=== PATIENT | female | born 1935 | race Caucasian/White ===

== ENCOUNTER 2017-10-16 09:12 | Day surgery (SDC) | payer OTHER ==
[~2017-10-16] VITALS: Ht 160 cm; Wt 76.0 kg
[~2017-10-16 09:12] MED LIST: ACIDOPHILUS1 EAC2 PO; ALBU90OI INH; AMOCLA875 PO; ASPI81CH PO; AZIT250 PO; Atenolol25 MG PO; BENZ100A PO; Benadryl 50 mg50 MG PO; CARV6.25 PO; FURO40 PO; HYDCHL25 PO; HYDHOMSY PO; K-Dur10 MEQ PO; Keflex500 MG PO; LEVFLO500 PO; LEVSOD125 PO; LOSA50 PO; Levothyroxine137 MCG PO; MAGOXI400 PO; MELA3 PO; Monodox100 MG PO; Norco 5-325 Ta1 EACH PO; POTCHL20ER PO; Simvastatin40 MG PO; VITAMIN D3 1,01 EACH PO; Vitamin D3 PO; Zithromax250 MG PO; Zithromax500 MG PO; Zofran Odt8 MG SL
== END 2017-10-16 12:52 | disposition home or self-care (01) ==
LOC: ORSCSDS 09:12
PROVIDERS: Podiatrist Foot & Ankle Surgery
PROC: 0QSN04Z Reposition Right Metatarsal with Internal Fixation Device, Open Approach (ICD-10-PCS; principal; 2017-10-16 10:30)
PROC: 0SNP0ZZ Release Right Toe Phalangeal Joint, Open Approach (ICD-10-PCS; principal; 2017-10-16 10:30)
DX: M20.11 Hallux valgus (acquired), right foot (principal); M77.9 Enthesopathy, unspecified; I10 Essential (primary) hypertension; E03.9 Hypothyroidism, unspecified; J44.9 Chronic obstructive pulmonary disease, unspecified; E78.5 Hyperlipidemia, unspecified; Z79.82 Long term (current) use of aspirin; Z79.899 Other long term (current) drug therapy; Z87.891 Personal history of nicotine dependence
CPT/HCPCS: C1713; J0690; J2250; J3010

== ENCOUNTER 2018-11-05 12:45 | Emergency (ER) | payer OTHER ==
[~2018-11-05] VITALS: Ht 160 cm; Wt 76.7 kg
[2018-11-05 13:35] LABS: BASOPHILS ABSOLUTE AUTO 0.03 K/mm3 (0.00-0.23); BASOPHILS PERCENT AUTO 0 % (0-2); EOSINOPHILS ABSOLUTE AUTO 0.25 K/mm3 (0.00-0.68); EOSINOPHILS PERCENT AUTO 3 % (0-6); Hemoglobin 11.9 g/dL (11.5-16.0); IMMATURE GRAN ABSOLUTE AUTO 0.02 K/mm3 (0.00-0.10); IMMATURE GRAN PERCENT AUTO 0 % (0-1); LYMPHOCYTES ABSOLUTE AUTO 1.29 K/mm3 (0.84-5.20); LYMPHOCYTES PERCENT AUTO 16 % (21-46); MONOCYTES ABSOLUTE AUTO 0.76 K/mm3 (0.16-1.47); MONOCYTES PERCENT AUTO 9 % (4-13); Mean Corpuscular HGB 31.7 pg (26.0-34.0); Mean Corpuscular HGB Conc 31.3 g/dL (31.5-36.5); Mean Corpuscular Volume 101 fL (80-100); Mean Platelet Volume 10.7 fL (9.1-12.4); NEUTROPHILS ABSOLUTE AUTO 5.71 K/mm3 (1.96-9.15); NEUTROPHILS PERCENT AUTO 71 % (41-73); Platelet Count 217 K/mm3 (150-400); RDW Coefficient Variation 13.7 % (11.7-14.2); RDW Standard Deviation 51.5 fL (35.1-46.3); Red Blood Cell Count 3.75 M/mm3 (3.80-5.20); White Blood Cell Count 8.06 K/mm3 (4.00-11.30)
[2018-11-05] MEDS ORDERED: CARV3.125 PO (13:36)
[2018-11-05] MEDS ORDERED: AMLO5 PO (13:36)
[2018-11-05] MEDS ORDERED: EUTHYROX112 MCG PO (13:40)
[2018-11-05] MEDS ORDERED: TRAM50 PO (13:40)
[2018-11-05 13:58] LABS: Alanine Aminotransfer (ALT/SGP 17 U/L (12-78); Albumin, Blood 4.5 g/dL (3.4-5.0); Albumin/Globulin Ratio 1.3 (0.8-1.8); Alk Phos 88 U/L (50-136); Anion Gap 6 mmol/L (6-16); Aspartate Aminotrans (AST/SGOT 27 U/L (12-37); Bilirubin, Total 1.3 mg/dL (0.1-1.0); Blood Urea Nitrogen 15 mg/dL (8-24); Bun/Creatinine Ratio 20.6 (12.0-20.0); CO2, Blood 25 mmol/L (21-32); Calcium, Blood 9.2 mg/dL (8.5-10.1); Chloride, Blood 105 mmol/L (98-108); Creatinine, Blood 0.73 mg/dL (0.40-1.00); Globulin, Blood 3.5 g/dL (2.2-4.0); Glomerular Filtration Rate >60 (60-); Glucose, Blood 97 mg/dL (70-99); Potassium, Blood 4.5 mmol/L (3.5-5.5); Sodium, Blood 136 mmol/L (136-145)
== END 2018-11-05 14:49 | disposition home or self-care (01) ==
LOC: ER 12:45
PROVIDERS: Physician Assistant
DX: R19.7 Diarrhea, unspecified (principal); I11.0 Hypertensive heart disease with heart failure; I50.9 Heart failure, unspecified; E03.9 Hypothyroidism, unspecified; Z88.2 Allergy status to sulfonamides; Z88.5 Allergy status to narcotic agent; Z79.899 Other long term (current) drug therapy
CPT/HCPCS: 36415; 80053; 85025; 99284

== ENCOUNTER 2019-03-05 15:23 | Emergency (ER) | payer OTHER ==
[~2019-03-05] VITALS: Ht 160 cm; Wt 77.1 kg
[~2019-03-05 15:23] MED LIST changes: +AMLO5 PO; +CARV3.125 PO; +EUTHYROX112 MCG PO; +TRAM50 PO
[2019-03-05 16:13] LABS: BASOPHILS ABSOLUTE AUTO 0.02 K/mm3 (0.00-0.23); BASOPHILS PERCENT AUTO 0 % (0-2); EOSINOPHILS ABSOLUTE AUTO 0.17 K/mm3 (0.00-0.68); EOSINOPHILS PERCENT AUTO 2 % (0-6); Hematocrit 38.8 % (33.0-51.0); Hemoglobin 12.5 g/dL (11.5-16.0); IMMATURE GRAN ABSOLUTE AUTO 0.03 K/mm3 (0.00-0.10); IMMATURE GRAN PERCENT AUTO 0 % (0-1); LYMPHOCYTES ABSOLUTE AUTO 1.38 K/mm3 (0.84-5.20); LYMPHOCYTES PERCENT AUTO 19 % (21-46); MONOCYTES ABSOLUTE AUTO 0.57 K/mm3 (0.16-1.47); MONOCYTES PERCENT AUTO 8 % (4-13); Mean Corpuscular HGB Conc 32.2 g/dL (31.5-36.5); Mean Corpuscular Volume 99 fL (80-100); Mean Platelet Volume 11.2 fL (9.1-12.4); NEUTROPHILS ABSOLUTE AUTO 5.15 K/mm3 (1.96-9.15); NEUTROPHILS PERCENT AUTO 70 % (41-73); Platelet Count 200 K/mm3 (150-400); RDW Coefficient Variation 13.2 % (11.7-14.2); RDW Standard Deviation 48.8 fL (35.1-46.3); Red Blood Cell Count 3.91 M/mm3 (3.80-5.20); White Blood Cell Count 7.32 K/mm3 (4.00-11.30)
[2019-03-05 16:25] LABS: Alanine Aminotransfer (ALT/SGP 23 U/L (12-78); Albumin, Blood 4.3 g/dL (3.4-5.0); Albumin/Globulin Ratio 1.2 (0.8-1.8); Alk Phos 101 U/L (50-136); Anion Gap 4 mmol/L (6-16); Aspartate Aminotrans (AST/SGOT 42 U/L (12-37); Bilirubin, Total 1.4 mg/dL (0.1-1.0); Blood Urea Nitrogen 21 mg/dL (8-24); Bun/Creatinine Ratio 21.7 (12.0-20.0); CO2, Blood 28 mmol/L (21-32); Chloride, Blood 103 mmol/L (98-108); Creatinine, Blood 0.97 mg/dL (0.40-1.00); Globulin, Blood 3.5 g/dL (2.2-4.0); Glomerular Filtration Rate 59 (60-); Glucose, Blood 100 mg/dL (70-99); Potassium, Blood 4.8 mmol/L (3.5-5.5); Sodium, Blood 135 mmol/L (136-145); Total Protein, Blood 7.8 g/dL (6.4-8.2); Troponin I <0.015 ng/mL (0.000-0.040)
[2019-03-05] MEDS ORDERED: LOPE2C PO (18:27)
== END 2019-03-05 18:38 | disposition home or self-care (01) ==
LOC: ER 15:23
PROVIDERS: Physician Assistant
DX: J20.8 Acute bronchitis due to other specified organisms (principal); I11.0 Hypertensive heart disease with heart failure; I50.9 Heart failure, unspecified; E78.00 Pure hypercholesterolemia, unspecified
CPT/HCPCS: 36415; 71046; 80053; 83880; 84484; 85025; 93005; 93010; 99285-25

== ENCOUNTER 2019-07-29 12:20 | Inpatient (IN) | payer OTHER, MEDICARE ==
[~2019-07-29] VITALS: Ht 160 cm; Wt 79.0 kg
[~2019-07-29 12:20] MED LIST changes: +LOPE2C PO; -MELA3 PO
[2019-07-29 12:55] LABS: BASOPHILS ABSOLUTE AUTO 0.02 K/mm3 (0.00-0.23); BASOPHILS PERCENT AUTO 0 % (0-2); EOSINOPHILS ABSOLUTE AUTO 0.03 K/mm3 (0.00-0.68); EOSINOPHILS PERCENT AUTO 0 % (0-6); Hematocrit 42.1 % (33.0-51.0); Hemoglobin 13.2 g/dL (11.5-16.0); IMMATURE GRAN ABSOLUTE AUTO 0.06 K/mm3 (0.00-0.10); IMMATURE GRAN PERCENT AUTO 1 % (0-1); LYMPHOCYTES ABSOLUTE AUTO 0.98 K/mm3 (0.84-5.20); LYMPHOCYTES PERCENT AUTO 8 % (21-46); MONOCYTES ABSOLUTE AUTO 1.01 K/mm3 (0.16-1.47); MONOCYTES PERCENT AUTO 8 % (4-13); Mean Corpuscular HGB Conc 31.4 g/dL (31.5-36.5); Mean Corpuscular Volume 99 fL (80-100); Mean Platelet Volume 11.8 fL (9.1-12.4); NEUTROPHILS ABSOLUTE AUTO 10.43 K/mm3 (1.96-9.15); NEUTROPHILS PERCENT AUTO 83 % (41-73); Platelet Count 192 K/mm3 (150-400); RDW Coefficient Variation 13.6 % (11.7-14.2); RDW Standard Deviation 49.6 fL (35.1-46.3); Red Blood Cell Count 4.26 M/mm3 (3.80-5.20); White Blood Cell Count 12.53 K/mm3 (4.00-11.30)
[2019-07-29 13:03] LABS: Albumin, Blood 4.3 g/dL (3.4-5.0); Albumin/Globulin Ratio 1.3 (0.8-1.8); Bilirubin, Total 1.8 mg/dL (0.1-1.0); Calcium, Blood 9.1 mg/dL (8.5-10.1); Creatinine, Blood 1.24 mg/dL (0.40-1.00); Globulin, Blood 3.2 g/dL (2.2-4.0); Potassium, Blood 4.4 mmol/L (3.5-5.5); Total Protein, Blood 7.5 g/dL (6.4-8.2)
[2019-07-29 13:14] LABS: Source, Urine Clean Catch
[2019-07-29 13:18] LABS: Bilirubin, Urine Neg (Neg); Blood, Urine 1+ (Neg); Glucose Qualitative, Urine Neg (Neg); Ketones, Urine 1+ (Neg); Leukocyte Esterase, Urine 3+ (Neg); Nitrite, Urine Neg (Neg); Protein, Urine 3+ (Neg); Urobilinogen, Urine NORM (Normal)
[2019-07-29 13:45] LABS: Appearance, Urine Clear (Clear); Color, Urine Yellow (P-Yellow)
[2019-07-29 13:46] LABS: Bacteria Mod /hpf; Squamous Epithelial Cells Few /hpf (Few)
[2019-07-29] MEDS ORDERED: TORSE20 PO (14:22)
[2019-07-29] MEDS ORDERED: METO25ER PO (14:22)
[2019-07-29] MEDS ORDERED: SIMV10 PO (14:23)
[2019-07-29] MEDS ORDERED: VASCEPA1 GM PO (14:53)
[2019-07-29] MEDS ORDERED: MELATONIN5 M1 PO (15:51)
--- NOTE | 2019-07-29 18:26 | NUR ---
PATIENT HAS DENIED NAUSEA SINCE ARRIVAL TO FLOOR. IV PAIN MATTE CUTTER, PATIENT DOZING, AWAKENS WITH CARE. IVF INFUSING PER ORDER, SITE CLEAR. CONSULT FOR DR JIMÉNEZ CALLED BY CN. NG TO LIS, SMALL AMOUNT ZAVALA FLUID IN CANISTER. CONT TO MONITOR.
[2019-07-29] MEDS ORDERED: ASPI81CH PO (18:31)
--- NOTE | 2019-07-29 18:31 | NUR ---
HOME MED LIST UPDATED
[2019-07-30 05:02] LABS: BASOPHILS ABSOLUTE AUTO 0.01 K/mm3 (0.00-0.23); BASOPHILS PERCENT AUTO 0 % (0-2); EOSINOPHILS ABSOLUTE AUTO 0.01 K/mm3 (0.00-0.68); EOSINOPHILS PERCENT AUTO 0 % (0-6); Hematocrit 39.1 % (33.0-51.0); Hemoglobin 12.2 g/dL (11.5-16.0); IMMATURE GRAN ABSOLUTE AUTO 0.02 K/mm3 (0.00-0.10); IMMATURE GRAN PERCENT AUTO 0 % (0-1); LYMPHOCYTES ABSOLUTE AUTO 0.45 K/mm3 (0.84-5.20); LYMPHOCYTES PERCENT AUTO 6 % (21-46); MONOCYTES ABSOLUTE AUTO 0.69 K/mm3 (0.16-1.47); MONOCYTES PERCENT AUTO 9 % (4-13); Mean Corpuscular HGB Conc 31.2 g/dL (31.5-36.5); Mean Corpuscular Volume 100 fL (80-100); Mean Platelet Volume 11.7 fL (9.1-12.4); NEUTROPHILS ABSOLUTE AUTO 6.34 K/mm3 (1.96-9.15); NEUTROPHILS PERCENT AUTO 84 % (41-73); Platelet Count 165 K/mm3 (150-400); RDW Coefficient Variation 13.7 % (11.7-14.2); RDW Standard Deviation 50.3 fL (35.1-46.3); Red Blood Cell Count 3.93 M/mm3 (3.80-5.20); White Blood Cell Count 7.52 K/mm3 (4.00-11.30)
[2019-07-30 05:37] LABS: Alanine Aminotransfer (ALT/SGP 10 U/L (12-78); Albumin, Blood 3.5 g/dL (3.4-5.0); Albumin/Globulin Ratio 1.2 (0.8-1.8); Alk Phos 84 U/L (50-136); Anion Gap 9 mmol/L (6-16); Aspartate Aminotrans (AST/SGOT 15 U/L (12-37); Bilirubin, Total 1.7 mg/dL (0.1-1.0); Blood Urea Nitrogen 21 mg/dL (8-24); Bun/Creatinine Ratio 23.1 (12.0-20.0); CO2, Blood 24 mmol/L (21-32); Calcium, Blood 8.3 mg/dL (8.5-10.1); Chloride, Blood 110 mmol/L (98-108); Creatinine, Blood 0.91 mg/dL (0.40-1.00); Glomerular Filtration Rate >60 (60-); Glucose, Blood 125 mg/dL (70-99); Sodium, Blood 143 mmol/L (136-145); Total Protein, Blood 6.5 g/dL (6.4-8.2)
--- NOTE | 2019-07-30 06:33 | NUR ---
SHIFT SUMMARY: PT C/O UPPER ABD PAIN. PT MEDICATED WITH 50MCG OF FENTANYL PER EMAR WHICH SEEMED TO BE EFFECTIVE. NG TUBE DRAINING DARK BROWN LIQ. FLUIDS INFUSING. PT VOIDING IN BEDSIDE COMMODE. MINIMAL 1 ASSIST FOR ALL TRANSFERS. TELE SHOWS MULTIPLE PVC'S Q3-4 BEAT. PT ASYMPTOMATIC.
--- NOTE | 2019-07-30 14:53 | NUR ---
PATIENT REPORTS PASSING FLATUS. "IT WAS A GOOD ONE TOO." UP TO SIDE OF BED; DOING ADL'S. STATES 'I STILL HAVE STOMACH PAIN.' DECLINES OFFER OF PAIN MED. VOIDING WELL. DENIES NAUSEA. NG RESECURED; DRAINING LIGHT BROWN LIQUID. DR JIMÉNEZ IN TO SEE THIS AFTERNOON. SPOUSAE AT BEDSIDE AT THIS TIME.
--- NOTE | 2019-07-30 18:57 | NUR ---
PATIENT CONT DENY PAIN. TOLERATING SIPS OF WATER, THEN RETURNS TO SLEEP. VSS. BIOX 90-93& ON 4L O2 PER NC. FC PATENT AND DRAINING. L HIP DRESSINGS X2, D&I. NO ACUTE CHANGES SINCE ARRIVAL FROM PACU. CONT TO MONITOR AND REPORT TO ADRIANNE RN.
--- NOTE | 2019-07-31 04:30 | NUR ---
CALLED DR ORTIZ REGARDING UNBALANCED I/O AND EDEMA. PT VERB TAKES DIURETIC AT HOME.HAS DENIED SOB. LASIX GIVEN PER ORDERS RECEIVED.PT HAS HAD 800 ML OUT SO FAR SINCE LASIX.PT APPEARS TO BE SLEEPING INTERMITTENTLY, BUT STATES HAS NOT SLEPT. C/O BED BEING UNCOMFORTABLE FOR SLEEP.HAS REFUSED MULTIPLE OFFERS OF RECLINER CHAIRS.
[2019-07-31 05:22] LABS: Albumin, Blood 3.5 g/dL (3.4-5.0); Anion Gap 5 mmol/L (6-16); Blood Urea Nitrogen 13 mg/dL (8-24); Bun/Creatinine Ratio 15.5 (12.0-20.0); CO2, Blood 27 mmol/L (21-32); Calcium, Blood 8.8 mg/dL (8.5-10.1); Chloride, Blood 111 mmol/L (98-108); Creatinine, Blood 0.84 mg/dL (0.40-1.00); Glomerular Filtration Rate >60 (60-); Glucose, Blood 91 mg/dL (70-99); Phosphorus, Blood 2.1 mg/dL (2.5-4.9); Potassium, Blood 3.8 mmol/L (3.5-5.5); Sodium, Blood 143 mmol/L (136-145)
--- NOTE | 2019-07-31 06:55 | NUR ---
recvd report from previous shift SATISH Silverio. pt awake in bed, a/0 x 4, pleasant/cooperative. up to commode with standby assist. back to bed, bed in lowest position, bed rails up x 2, call light within reach
--- NOTE | 2019-07-31 11:22 | NUR ---
1100-dr calero rounded, orders to DC NG tube and resume clear liquids 1122-dr wise rounding on pt. NG tube removed WNL
--- NOTE | 2019-07-31 18:22 | NUR ---
shift summary: vss, no acute changes, pt tolerating clear liquid diet, BM x 3 this shift, no n/v following removal of NG tube. pt's visited today. pt voided >500 ml today.
[2019-08-01 05:58] LABS: Hematocrit 34.6 % (33.0-51.0); Hemoglobin 10.8 g/dL (11.5-16.0); Mean Corpuscular HGB 30.9 pg (26.0-34.0); Mean Corpuscular HGB Conc 31.2 g/dL (31.5-36.5); Mean Corpuscular Volume 99 fL (80-100); Mean Platelet Volume 11.4 fL (9.1-12.4); Platelet Count 126 K/mm3 (150-400); RDW Coefficient Variation 13.5 % (11.7-14.2); RDW Standard Deviation 49.1 fL (35.1-46.3); Red Blood Cell Count 3.49 M/mm3 (3.80-5.20); White Blood Cell Count 5.99 K/mm3 (4.00-11.30)
[2019-08-01 06:12] LABS: Albumin, Blood 3.6 g/dL (3.4-5.0); Anion Gap 7 mmol/L (6-16); Blood Urea Nitrogen 10 mg/dL (8-24); Bun/Creatinine Ratio 11.5 (12.0-20.0); CO2, Blood 29 mmol/L (21-32); Calcium, Blood 8.9 mg/dL (8.5-10.1); Chloride, Blood 105 mmol/L (98-108); Creatinine, Blood 0.87 mg/dL (0.40-1.00); Glomerular Filtration Rate >60 (60-); Glucose, Blood 88 mg/dL (70-99); Phosphorus, Blood 2.9 mg/dL (2.5-4.9); Potassium, Blood 3.3 mmol/L (3.5-5.5); Sodium, Blood 141 mmol/L (136-145)
--- NOTE | 2019-08-01 07:26 | NUR ---
SUMMARY PT HAVING LIQ BMS TONIGHT.VOIDING WITHOUT DIFF CLEAR YELLOW.GAETANO YOO RN REPORTED PTS TELE WAS ORDERED DCD AND WAS REMOVED.
--- NOTE | 2019-08-01 18:48 | NUR ---
SHIFT SUMMARY PT IS TOLERATING REGULAR DIET. SHE CONTINUES TO HAVE BOWEL MOVEMENTS. SHE HAS BEEN INDEPENDENT IN THE ROOM. VSS. WILL CONTINUE TO MONITOR UNTIL REPORT TO ONCOMING RN.
[2019-08-02 04:32] LABS: Albumin, Blood 3.3 g/dL (3.4-5.0); Anion Gap 8 mmol/L (6-16); Blood Urea Nitrogen 13 mg/dL (8-24); Bun/Creatinine Ratio 14.3 (12.0-20.0); CO2, Blood 28 mmol/L (21-32); Calcium, Blood 8.7 mg/dL (8.5-10.1); Chloride, Blood 103 mmol/L (98-108); Creatinine, Blood 0.91 mg/dL (0.40-1.00); Glomerular Filtration Rate >60 (60-); Glucose, Blood 90 mg/dL (70-99); Phosphorus, Blood 3.2 mg/dL (2.5-4.9); Potassium, Blood 3.7 mmol/L (3.5-5.5); Sodium, Blood 139 mmol/L (136-145)
--- NOTE | 2019-08-02 07:28 | NUR ---
SUMMARY PT HOPES TO GO HOME TODAY. INDEPENDANT TO BSC. TOLERATING PO.
--- NOTE | 2019-08-02 08:35 | NUR ---
DR JIMÉNEZ HERE TO SEE PT, REPORTS MAY GO HOME AFTER LUNCH IF HAVING NO NAUSEA.
--- NOTE | 2019-08-02 10:55 | NUR ---
DR JACOBS HERE RECENTLY TO SEE PT, DISCUSSED PT'S STATUS.
--- NOTE | 2019-08-02 12:54 | NUR ---
DISCHARGE: PT EATING AND DRINKING, VOIDING, HAVING BM'S. PT PAIN TOLERATED ON PO PAIN MEDICATION. PT REPORTING THAT SHE FEELS THAT SHE HAS A "YEAST INFECTION" IN HER DANA AREA. PT REPORTS THAT SHE CAN NOT SEE HER DANA AREA BUT REPORTS THAT NO ONE IS LOOKING. NOTIFIED. DR REPORTS ABLE TO COME TALK TO HER BUT THAT IT COULD BE UP TO AN HOUR BEFORE SHE (THE DR) IS ABLE TO COME TALK WITH PT. DR REPORTS THAT PT CAN WAIT FOR HER OR F/U WITH HER (PT'S) PCP. PT REPORTS WILL F/U WITH PCP. PT/FAMILY REPORTS UNDERSTADING OF DISCHARGE INSTRUCTIONS. PT REPORTS HAVING MEDICATIONS AT HOME INCLUDING PAIN MEDICATION.
== END 2019-08-02 12:57 | disposition home or self-care (01) | DRG 389 ==
LOC: ER 12:20 → SURS 15:49
PROVIDERS: Emergency Medicine; Nurse Practitioner Acute Care; ADMIT Internal Medicine
DX: K56.50 Intestinal adhesions [bands], unspecified as to partial versus complete obstruction (principal); N17.9 Acute kidney failure, unspecified; I42.8 Other cardiomyopathies; I50.22 Chronic systolic (congestive) heart failure; K52.1 Toxic gastroenteritis and colitis; R82.71 Bacteriuria; E86.0 Dehydration; I11.0 Hypertensive heart disease with heart failure; E03.9 Hypothyroidism, unspecified; E78.5 Hyperlipidemia, unspecified; T36.95XA Adverse effect of unspecified systemic antibiotic, initial encounter; Y92.239 Unspecified place in hospital as the place of occurrence of the external cause; Z87.891 Personal history of nicotine dependence; Z88.2 Allergy status to sulfonamides; Z88.5 Allergy status to narcotic agent; Z88.8 Allergy status to other drugs, medicaments and biological substances; Z79.82 Long term (current) use of aspirin; Z79.891 Long term (current) use of opiate analgesic; Z79.899 Other long term (current) drug therapy
CPT/HCPCS: 36415; 74177; 80053; 80069; 81001; 83605; 83690; 83735; 84100; 85025; 85027; 87040; 87077; 87086; 87186; 93005; 93010; 96374-59; 96375; 99285-25; A9270; J0696; J1940; J2405; J3010; J7030; Q9967

== ENCOUNTER 2020-01-29 11:36 | Emergency (ER) | payer OTHER ==
[~2020-01-29] VITALS: Ht 160 cm; Wt 75.3 kg
[~2020-01-29 11:36] MED LIST changes: -EUTHYROX112 MCG PO; -LOSA50 PO; -TRAM50 PO; +VASCEPA1 GM PO
[2020-01-29] MEDS ORDERED: CYCL10 PO (12:46)
[2020-03-27] MEDS ORDERED: Ultram50 MG PO (14:04)
[2020-03-28] MEDS ORDERED: Ultram50 MG PO (10:31)
== END 2020-01-29 13:02 | disposition home or self-care (01) ==
LOC: ER 11:36
DX: S39.012A Strain of muscle, fascia and tendon of lower back, initial encounter (principal); Z88.2 Allergy status to sulfonamides; Z88.5 Allergy status to narcotic agent; Z88.8 Allergy status to other drugs, medicaments and biological substances; Z79.82 Long term (current) use of aspirin; Z79.899 Other long term (current) drug therapy; I11.0 Hypertensive heart disease with heart failure; E03.9 Hypothyroidism, unspecified; I48.91 Unspecified atrial fibrillation; E78.5 Hyperlipidemia, unspecified; Z87.01 Personal history of pneumonia (recurrent); X58.XXXA Exposure to other specified factors, initial encounter
CPT/HCPCS: 99283

== ENCOUNTER 2020-02-02 12:00 | Inpatient (IN) | payer OTHER ==
[~2020-02-02] VITALS: Ht 160 cm; Wt 78.5 kg
[~2020-02-02 12:00] MED LIST changes: +CYCL10 PO
[2020-02-02 13:03] LABS: BASOPHILS ABSOLUTE AUTO 0.03 K/mm3 (0.00-0.23); BASOPHILS PERCENT AUTO 0 % (0-2); EOSINOPHILS ABSOLUTE AUTO 0.26 K/mm3 (0.00-0.68); EOSINOPHILS PERCENT AUTO 4 % (0-6); Hemoglobin 10.5 g/dL (11.5-16.0); IMMATURE GRAN ABSOLUTE AUTO 0.02 K/mm3 (0.00-0.10); IMMATURE GRAN PERCENT AUTO 0 % (0-1); LYMPHOCYTES ABSOLUTE AUTO 1.05 K/mm3 (0.84-5.20); LYMPHOCYTES PERCENT AUTO 14 % (21-46); MONOCYTES ABSOLUTE AUTO 0.73 K/mm3 (0.16-1.47); MONOCYTES PERCENT AUTO 10 % (4-13); Mean Corpuscular HGB 31.8 pg (26.0-34.0); Mean Corpuscular HGB Conc 31.8 g/dL (31.5-36.5); Mean Corpuscular Volume 100 fL (80-100); Mean Platelet Volume 11.9 fL (9.1-12.4); NEUTROPHILS ABSOLUTE AUTO 5.37 K/mm3 (1.96-9.15); NEUTROPHILS PERCENT AUTO 72 % (41-73); Platelet Count 171 K/mm3 (150-400); RDW Coefficient Variation 14.5 % (11.7-14.2); RDW Standard Deviation 52.8 fL (35.1-46.3); White Blood Cell Count 7.46 K/mm3 (4.00-11.30)
[2020-02-02 13:20] LABS: International Normalized Ratio 1.09; Prothrombin Time Results 11.6 Sec (9.7-11.5)
[2020-02-02 13:21] LABS: Albumin/Globulin Ratio 1.2 (0.8-1.8); Bun/Creatinine Ratio 29.5 (12.0-20.0); Calcium, Blood 8.5 mg/dL (8.5-10.1); Creatinine, Blood 1.05 mg/dL (0.40-1.00); Globulin, Blood 3.2 g/dL (2.2-4.0); Potassium, Blood 4.6 mmol/L (3.5-5.5); Total Protein, Blood 7.2 g/dL (6.4-8.2)
[2020-02-02] MEDS ORDERED: EUTHYROX112 MCG PO (15:57)
[2020-02-02] MEDS ORDERED: ELIQUIS5 M3 PO (15:58)
[2020-02-02] MEDS ORDERED: SIMV10 PO (15:58)
[2020-02-02] MEDS ORDERED: METO25ER PO (15:58)
[2020-02-02] MEDS ORDERED: TORS10 PO (16:00)
[2020-02-02] MEDS ORDERED: TRAM50 PO ×2 (16:00→16:28)
[2020-02-02] MEDS ORDERED: CELEBREX200 MG PO (16:01)
[2020-02-02] MEDS ORDERED: ENTRESTO 24 MG1 EACH PO (16:26)
[2020-02-02] MEDS ORDERED: MELATONIN5 M1 PO (16:27)
--- NOTE | 2020-02-02 18:41 | NUR ---
SUMMARY PT ADMITTED FROM THE ER FOR POSSIBLE GI BLEED, PT IS ALERT AND ORIENTED AND INDEPENDENT IN THE ROOM, ORIENTED PT TO THE ROOM AND CALL SYSTEM, PT IS ON A PROTONIX DRIP, EXTRA BAG IN THE ROOM READY TO HANG, PT REPORTS TO THIS RN SHE WILL BE SCOPED IN THE MORNING AND SHE IS TO HAVE NOTHING TO EAT OR DRINK AFTER MIDNIGHT, GI CONSULT HAS BEEN DONE IN THE ER, PT DENIES ANY PAIN OR NAUSEA, VSS, NO ACUTE CHANGES, WILL CONT TO MONITOR
[2020-02-02 20:22] LABS: Hematocrit 29.9 % (33.0-51.0); Hemoglobin 9.5 g/dL (11.5-16.0)
[2020-02-03 05:20] LABS: Hematocrit 30.9 % (33.0-51.0); Hemoglobin 9.8 g/dL (11.5-16.0); Mean Corpuscular HGB 31.6 pg (26.0-34.0); Mean Corpuscular HGB Conc 31.7 g/dL (31.5-36.5); Mean Corpuscular Volume 100 fL (80-100); Platelet Count 154 K/mm3 (150-400); RDW Coefficient Variation 14.5 % (11.7-14.2); White Blood Cell Count 4.89 K/mm3 (4.00-11.30)
[2020-02-03 05:38] LABS: Anion Gap 7 mmol/L (6-16); Blood Urea Nitrogen 19 mg/dL (8-24); CO2, Blood 23 mmol/L (21-32); Calcium, Blood 8.4 mg/dL (8.5-10.1); Chloride, Blood 108 mmol/L (98-108); Glomerular Filtration Rate >60 (60-); Glucose, Blood 91 mg/dL (70-99); Potassium, Blood 4.2 mmol/L (3.5-5.5); Sodium, Blood 138 mmol/L (136-145)
--- NOTE | 2020-02-03 05:46 | NUR ---
SHIFT SUMMARY ADMITTED FOR UPPER GI BLEED. FULL CODE. PLAN IS FOR UPPER ENDOSCOPY TODAY. SHE HAS BEEN NPO SINCE MIDNIGHT. SHE IS A&O X4, ON RA, INDEPENDENT IN ROOM. PROTONIX IS INFUSING @ 10 ML/HR. SHE LIVES WITH HER . HER HOME ELIQUIS, CELEBREX, AND HIGH DOSE IBUPROFEN HAVE BEEN STOPPED. SHE HAS CHRONIC BACK/NECK PAIN. HX: AFIB. SHE WAS ON A FULL LIQUID DIET PREVIOUS TO NPO STATUS.
--- NOTE | 2020-02-03 12:01 | NUR ---
PT TO PROCEDURE
--- NOTE | 2020-02-03 12:18 | NUR ---
02/03/20 1218 Ron Gill History, Chart, Medications and Allergies reviewed before start of procedure.MONITOR INTACT WITH CONTINUOUS PULSE OXIMETRY AND INTERMITTENT BP.3-LEAD EKG REVIEWED WITH PHYSICIAN PRIOR TO START OF PROCEDURE.O2 VIA N/C INTACT THROUGHOUT SEDATION/PROCEDURE. PATIENT DETERMINED TO BE ASA APPROPRIATE FOR PROPOFOL SEDATION PRIOR TO START OF PROCEDURE BY DR. BLANCO.
--- NOTE | 2020-02-03 13:17 | NUR ---
PT BACK FROM PROCEDURE
--- NOTE | 2020-02-03 18:01 | NUR ---
SUMMARY PT SITTING UP IN BED EATING DINNER, PT HAD AN UPPER ENDOSCOPY TODAY, JONATHON WELL, HAS BEEN INDEPENDENT IN THE ROOM, MED PER EMAR FOR PAIN, NO S/S BLEEDING, PT HOPEFUL TO GO HOME IN AM, NO ACUTE CHANGES, WILL CONT TO MONITOR
--- NOTE | 2020-02-04 04:30 | NUR ---
SHIFT SUMMARY ADMITTED FOR UPPER GI BLEED. FULL CODE. UPPER ENDOSCOPY PERFORMED YESTERDAY. PT REQUESTED IV PAIN MEDICATION ONE TIME THIS SHIFT. CONTINUOUS PROTONIX INFUSING @ 10 ML/HR. SHE IS ON RA, FULL LIQUID DIET, INDEPENDENT IN ROOM, A&O X4. HOME MEDS ELIQUIS, CELEBREX, AND HIGH DOSE IBUPROFEN DC'D. CONSULT IS DR BLANCO. SHE LIVES WITH HER . PLAN IS TO MONITOR LABS, IF H&H ARE STABLE SHE MAY RESTART HER ELIQUIS. BLE EDEMA NOTED. PERTINENT HX: CHF (EF 32%), AFIB, CHRONIC NECK/BACK PAIN. AWAITING MORNING LABS.
--- NOTE | 2020-02-04 08:00 | NUR ---
PT EVANGELINA COOP A/O. STATES PAIN IV MEDS NOT WORKING. HAD NECK ISSUES AND HAS NOW LOW BACK ISSUES FROM OVER WORKING ON CLEANING AND WASHING HER RV. STATES THINKS SOME ARTHRITIS ALSO. I REQUESTED KPAD FOR PAIN RELIEF. WILL SPEAK TO WHEN TO ROOM FOR DIFFERENT MEDS. I ALSO REQUESTED ALSO A RECLINER CHAIR. H/R IRREG, NO MURMER NOTED. HX AFIB. PACER LUCW. NO TELE. LUNGS CLEAR, RESP EASY, UNLABORED ON R.A. BT X4 LAST BM YEST. STATES SOME DARK STOOL LAST FEW BMS. HERE FOR UPPER GI BLEED. H/H SHOWS SOME SLOW IMPROVEMENT. VOIDS INDEPENDANTLY TO BATHROOM. BED IN LOW POSITION, CALL LITE IN REACH, CALLS APPROP
[2020-02-04 08:29] LABS: BASOPHILS ABSOLUTE AUTO 0.03 K/mm3 (0.00-0.23); BASOPHILS PERCENT AUTO 1 % (0-2); EOSINOPHILS ABSOLUTE AUTO 0.14 K/mm3 (0.00-0.68); EOSINOPHILS PERCENT AUTO 2 % (0-6); Hematocrit 33.1 % (33.0-51.0); Hemoglobin 10.4 g/dL (11.5-16.0); IMMATURE GRAN ABSOLUTE AUTO 0.03 K/mm3 (0.00-0.10); IMMATURE GRAN PERCENT AUTO 1 % (0-1); LYMPHOCYTES ABSOLUTE AUTO 1.13 K/mm3 (0.84-5.20); LYMPHOCYTES PERCENT AUTO 18 % (21-46); MONOCYTES ABSOLUTE AUTO 0.52 K/mm3 (0.16-1.47); MONOCYTES PERCENT AUTO 8 % (4-13); Mean Corpuscular HGB 31.3 pg (26.0-34.0); Mean Corpuscular HGB Conc 31.4 g/dL (31.5-36.5); Mean Corpuscular Volume 100 fL (80-100); Mean Platelet Volume 11.7 fL (9.1-12.4); NEUTROPHILS ABSOLUTE AUTO 4.61 K/mm3 (1.96-9.15); NEUTROPHILS PERCENT AUTO 71 % (41-73); Platelet Count 175 K/mm3 (150-400); RDW Coefficient Variation 14.7 % (11.7-14.2); RDW Standard Deviation 53.2 fL (35.1-46.3); Red Blood Cell Count 3.32 M/mm3 (3.80-5.20); White Blood Cell Count 6.46 K/mm3 (4.00-11.30)
[2020-02-04 08:43] LABS: Anion Gap 6 mmol/L (6-16); Blood Urea Nitrogen 11 mg/dL (8-24); Bun/Creatinine Ratio 13.1 (12.0-20.0); CO2, Blood 24 mmol/L (21-32); Chloride, Blood 107 mmol/L (98-108); Creatinine, Blood 0.84 mg/dL (0.40-1.00); Glomerular Filtration Rate >60 (60-); Glucose, Blood 108 mg/dL (70-99); Potassium, Blood 4.4 mmol/L (3.5-5.5); Sodium, Blood 137 mmol/L (136-145)
--- NOTE | 2020-02-04 16:21 | NUR ---
PT PLEASANT TODAY. STATES VERY GRATEFUL FOR RECLINER CHAIR, BED EGG CRATE PAD, AND K-PAD. ALSO STATES CHANGE IN MEDS HAS BEEN HELPFUL. PT HAS BEEN TO BATHROOM INDEPENDANTLY TODAY. NO NEW CONCERNS AT THIS TIME. PT STATES SMALL DARK STOOLS, BUT NO CRAMPING. STATES FEELS IMPROVEMENT. DR BLANCO WAS IN TODAY AND INDICATES WILL KEEP PROTONIX ONE MORE DAY. BED IN LOW POSITION, CALL LITE IN REACH, CALLS APPROP
--- NOTE | 2020-02-05 03:29 | NUR ---
SHIFT SUMMARY: VSS. AFEB. AAOX4. ABLE TO COMMUNICATE NEEDS. NO BM TONIGHT. CONT FULL LIQUID DIET. JONATHON WELL. DENIES N/V. ABD SOFT, NON-TENDER, NON-DISTENDED. CONTINUOUS PROTONIX DRIP PER ORDERS. PAIN WELL MANAGED W/ CURRENT SCHEDULED ANALGESICS. AMB INDEPENDENTLY IN ROOM. JONATHON ACTIVITY. NO ACUTE CHANGES TONIGHT. WILL CONT TO MONITOR.
[2020-02-05 05:11] LABS: BASOPHILS ABSOLUTE AUTO 0.02 K/mm3 (0.00-0.23); BASOPHILS PERCENT AUTO 0 % (0-2); EOSINOPHILS ABSOLUTE AUTO 0.19 K/mm3 (0.00-0.68); EOSINOPHILS PERCENT AUTO 4 % (0-6); Hematocrit 30.6 % (33.0-51.0); Hemoglobin 9.4 g/dL (11.5-16.0); IMMATURE GRAN ABSOLUTE AUTO 0.02 K/mm3 (0.00-0.10); IMMATURE GRAN PERCENT AUTO 0 % (0-1); LYMPHOCYTES ABSOLUTE AUTO 1.03 K/mm3 (0.84-5.20); LYMPHOCYTES PERCENT AUTO 22 % (21-46); MONOCYTES ABSOLUTE AUTO 0.57 K/mm3 (0.16-1.47); MONOCYTES PERCENT AUTO 12 % (4-13); Mean Corpuscular HGB 30.8 pg (26.0-34.0); Mean Corpuscular HGB Conc 30.7 g/dL (31.5-36.5); Mean Corpuscular Volume 100 fL (80-100); Mean Platelet Volume 11.4 fL (9.1-12.4); NEUTROPHILS ABSOLUTE AUTO 2.89 K/mm3 (1.96-9.15); NEUTROPHILS PERCENT AUTO 61 % (41-73); Platelet Count 137 K/mm3 (150-400); RDW Standard Deviation 53.9 fL (35.1-46.3); Red Blood Cell Count 3.05 M/mm3 (3.80-5.20); White Blood Cell Count 4.72 K/mm3 (4.00-11.30)
[2020-02-05 05:36] LABS: Bun/Creatinine Ratio 10.1 (12.0-20.0); Calcium, Blood 8.8 mg/dL (8.5-10.1); Creatinine, Blood 1.09 mg/dL (0.40-1.00); Potassium, Blood 4.4 mmol/L (3.5-5.5)
--- NOTE | 2020-02-05 09:30 | NUR ---
PT PLEASANT COOP A/O TALKATIVE. PT STATES QUITE PLEASED WITH CARE. STATES BED MUCH BETTER WITH EGG CRATE. RECLINER CHAIR HAS BEEN GOOD FOR HER. BACK KPAD IS ALSO HELPING. PAIN IN NECK AND LOW BACK TO L SIDE. AGAIN, FEELS LIKELY FROM WASHING TRLR LAST WEEK. ALSO HAS CHRONIC PAIN. MED WITH TRAMADOL. H/R IRREG, NO MURMER NOTED. HX AFIB. NO PACER. LUNGS CLEAR, RESP EASY, UNLABORED. ON R.A. BT X4 LAST BM YEST X2. DARK STOOL REPORTED BY PT. NONE TODAY. HAVE PLACED HAT IN COMMODE TO OBSERVE STOOL. VOIDS INDEPENDANT TO BATHROOM. BED IN LOW POSITION,C ALL LITE IN REACH, CALLS APPROP
[2020-02-05 14:49] LABS: Percent Saturation 11.4 % (15.0-50.0)
--- NOTE | 2020-02-05 16:41 | NUR ---
PT REQUESTING TRAMADOL, FOR PAIN. CALLED DR FRANCO OKAY CHANGE TO Q8 PRN
--- NOTE | 2020-02-05 16:52 | NUR ---
AFTER FURTHER DISCUSSION, PT REQUESTED KEEP SAME PAIN MED REGIMIN
--- NOTE | 2020-02-05 18:24 | NUR ---
PT QUITE PLEASANT TODAY. HAS BEEN SO APPRECIATIVE FOR HELP FINDING A RECLINER CHAIR, JAVID SAGASTUME OBTAINED. STATES HOPEFUL FOR D/C TOMORROW. IV PROTONIX D/C THIS AFT. PO STARTED. NO NEW CONCERNS NOTED. BED IN LOW POSIITON, CALL LITE IN REACH, CALLS APPROP
--- NOTE | 2020-02-06 05:09 | NUR ---
SHIFT SUMMARY: VSS. AFEB. AAOX4. ABLE TO COMMUNICATE NEEDS. JONATHON PO INTAKE. DENIES N/V. ABD NON-TENDER, NON-DISTENDED. BT ACTIVE X 4. PT HAS NOT HAD A BM OVERNIGHT. TRAMADOL X 1 FOR CHR BACK PAIN. APPEARS TO HAVE SLEPT WELL. NO ACUTE CHANGES.
[2020-02-06 05:43] LABS: BASOPHILS ABSOLUTE AUTO 0.04 K/mm3 (0.00-0.23); BASOPHILS PERCENT AUTO 1 % (0-2); EOSINOPHILS ABSOLUTE AUTO 0.22 K/mm3 (0.00-0.68); EOSINOPHILS PERCENT AUTO 4 % (0-6); Hematocrit 33.2 % (33.0-51.0); Hemoglobin 10.4 g/dL (11.5-16.0); IMMATURE GRAN ABSOLUTE AUTO 0.01 K/mm3 (0.00-0.10); IMMATURE GRAN PERCENT AUTO 0 % (0-1); LYMPHOCYTES ABSOLUTE AUTO 1.61 K/mm3 (0.84-5.20); LYMPHOCYTES PERCENT AUTO 28 % (21-46); MONOCYTES ABSOLUTE AUTO 0.59 K/mm3 (0.16-1.47); MONOCYTES PERCENT AUTO 10 % (4-13); Mean Corpuscular HGB Conc 31.3 g/dL (31.5-36.5); Mean Corpuscular Volume 99 fL (80-100); Mean Platelet Volume 11.5 fL (9.1-12.4); NEUTROPHILS ABSOLUTE AUTO 3.22 K/mm3 (1.96-9.15); NEUTROPHILS PERCENT AUTO 57 % (41-73); Platelet Count 175 K/mm3 (150-400); RDW Coefficient Variation 14.7 % (11.7-14.2); RDW Standard Deviation 53.7 fL (35.1-46.3); Red Blood Cell Count 3.36 M/mm3 (3.80-5.20); White Blood Cell Count 5.69 K/mm3 (4.00-11.30)
[2020-02-06 06:21] LABS: Albumin, Blood 3.7 g/dL (3.4-5.0); Albumin/Globulin Ratio 1.3 (0.8-1.8); Bilirubin, Total 1.4 mg/dL (0.1-1.0); Bun/Creatinine Ratio 15.9 (12.0-20.0); Creatinine, Blood 1.07 mg/dL (0.40-1.00); Globulin, Blood 2.9 g/dL (2.2-4.0); Potassium, Blood 4.1 mmol/L (3.5-5.5); Total Protein, Blood 6.6 g/dL (6.4-8.2)
[2020-02-06] MEDS ORDERED: ACET325 PO (11:33)
[2020-02-06] MEDS ORDERED: PANT40 PO (11:34)
--- NOTE | 2020-02-06 12:09 | NUR ---
PT DCD HOME WITH . ALL INSTRUCTIONS AND MED REC REVIEWED WITH THE PT WHO VERBALIZED AN UNDERSTANDING. PT WISHES TO SCHEDULE HER OWN F/U APPTS. IV REMOVED WITH NO ISSUE. ALL PERSONAL BELONGINGS SENT WITH THE PT. PT IS HERE TO TAKE HER HOME.
[2020-03-27] MEDS ORDERED: Ultram50 MG PO (14:04)
[2020-03-28] MEDS ORDERED: Ultram50 MG PO (10:31)
== END 2020-02-06 12:15 | disposition home or self-care (01) | DRG 378 ==
LOC: ER 12:00 → MEDS 15:50
PROVIDERS: Emergency Medicine; Internal Medicine; Internal Medicine Gastroenterology; Nurse Practitioner Acute Care; ADMIT Hospitalist
PROC: 0W3P8ZZ Control Bleeding in Gastrointestinal Tract, Via Natural or Artificial Opening Endoscopic (ICD-10-PCS; principal; 2020-02-03 12:30)
PROC: 3E0G8GC Introduction of Other Therapeutic Substance into Upper GI, Via Natural or Artificial Opening Endoscopic (ICD-10-PCS; 2020-02-03 12:30)
DX: K26.4 Chronic or unspecified duodenal ulcer with hemorrhage (principal); I50.22 Chronic systolic (congestive) heart failure; D62 Acute posthemorrhagic anemia; Z79.82 Long term (current) use of aspirin; E03.9 Hypothyroidism, unspecified; I11.0 Hypertensive heart disease with heart failure; E78.5 Hyperlipidemia, unspecified; K29.80 Duodenitis without bleeding
CPT/HCPCS: 36415; 71045; 80048; 80053; 82272; 82728; 83540; 83550; 83880; 85014; 85018; 85025; 85027; 85610; 85730; 86850; 86900; 86901; 96365; 96375; 99285-25; A9270; A9270-GY; C9113; J0171; J2704; J3010; J7120; U0002

== ENCOUNTER 2020-09-07 09:01 | Emergency (ER) | payer OTHER ==
[~2020-09-07] VITALS: Ht 160 cm; Wt 68.0 kg
[~2020-09-07 09:01] MED LIST changes: +ACET325 PO; +CELEBREX200 MG PO; +ELIQUIS5 M3 PO; +ENTRESTO 24 MG1 EACH PO; +EUTHYROX112 MCG PO; +MELATONIN5 M1 PO; +METO25ER PO; +PANT40 PO; +SIMV10 PO; +TORS10 PO; +TRAM50 PO; +Ultram50 MG PO
[2020-09-07 10:45] LABS: BASOPHILS ABSOLUTE AUTO 0.02 K/mm3 (0.00-0.23); BASOPHILS PERCENT AUTO 0 % (0-2); EOSINOPHILS ABSOLUTE AUTO 0.01 K/mm3 (0.00-0.68); EOSINOPHILS PERCENT AUTO 0 % (0-6); Hematocrit 31.7 % (33.0-51.0); Hemoglobin 9.4 g/dL (11.5-16.0); IMMATURE GRAN ABSOLUTE AUTO 0.04 K/mm3 (0.00-0.10); IMMATURE GRAN PERCENT AUTO 1 % (0-1); LYMPHOCYTES ABSOLUTE AUTO 1.02 K/mm3 (0.84-5.20); LYMPHOCYTES PERCENT AUTO 12 % (21-46); MONOCYTES ABSOLUTE AUTO 0.58 K/mm3 (0.16-1.47); MONOCYTES PERCENT AUTO 7 % (4-13); Mean Corpuscular HGB 28.2 pg (26.0-34.0); Mean Corpuscular HGB Conc 29.7 g/dL (31.5-36.5); Mean Corpuscular Volume 95 fL (80-100); Mean Platelet Volume 12.4 fL (9.1-12.4); NEUTROPHILS PERCENT AUTO 81 % (41-73); Platelet Count 167 K/mm3 (150-400); RDW Coefficient Variation 14.8 % (11.7-14.2); RDW Standard Deviation 51.2 fL (35.1-46.3); Red Blood Cell Count 3.33 M/mm3 (3.80-5.20); White Blood Cell Count 8.77 K/mm3 (4.00-11.30)
[2020-09-07 11:02] LABS: Alanine Aminotransfer (ALT/SGP 15 U/L (12-78); Albumin, Blood 3.9 g/dL (3.4-5.0); Albumin/Globulin Ratio 1.3 (0.8-1.8); Alk Phos 74 U/L (50-136); Anion Gap 10 mmol/L (6-16); Aspartate Aminotrans (AST/SGOT 12 U/L (12-37); Bilirubin, Total 1.6 mg/dL (0.1-1.0); Blood Urea Nitrogen 14 mg/dL (8-24); Bun/Creatinine Ratio 18.3 (12.0-20.0); CO2, Blood 23 mmol/L (21-32); Chloride, Blood 108 mmol/L (98-108); Creatinine, Blood 0.76 mg/dL (0.40-1.00); Globulin, Blood 3.1 g/dL (2.2-4.0); Glomerular Filtration Rate >60 (60-); Glucose, Blood 137 mg/dL (70-99); Magnesium, Blood 1.8 mg/dL (1.6-2.4); Potassium, Blood 3.7 mmol/L (3.5-5.5); Sodium, Blood 141 mmol/L (136-145); Troponin I <0.015 ng/mL (0.000-0.040)
[2020-09-07] MEDS ORDERED: TRAM50 PO (12:06)
[2020-10-13] MEDS ORDERED: ALDACTONE25 MG PO (15:18)
== END 2020-09-07 12:35 | disposition home or self-care (01) ==
LOC: ER 09:01
PROVIDERS: Emergency Medicine
DX: I48.91 Unspecified atrial fibrillation (principal); M54.5 Low back pain; G89.29 Other chronic pain; I11.0 Hypertensive heart disease with heart failure; I50.22 Chronic systolic (congestive) heart failure; E78.5 Hyperlipidemia, unspecified; E03.9 Hypothyroidism, unspecified; Z79.899 Other long term (current) drug therapy; Z79.01 Long term (current) use of anticoagulants; Z88.2 Allergy status to sulfonamides; Z88.8 Allergy status to other drugs, medicaments and biological substances; Z88.5 Allergy status to narcotic agent
CPT/HCPCS: 36415; 71045; 80053; 83735; 84484; 85025; 99284-25; A9270

== ENCOUNTER 2020-09-15 11:50 | Inpatient (IN) | payer OTHER ==
[~2020-09-15] VITALS: Ht 160 cm; Wt 67.6 kg
[2020-09-15 12:13] LABS: BASOPHILS ABSOLUTE AUTO 0.02 K/mm3 (0.00-0.23); BASOPHILS PERCENT AUTO 0 % (0-2); EOSINOPHILS ABSOLUTE AUTO 0.02 K/mm3 (0.00-0.68); EOSINOPHILS PERCENT AUTO 0 % (0-6); Hematocrit 30.7 % (33.0-51.0); Hemoglobin 9.2 g/dL (11.5-16.0); IMMATURE GRAN ABSOLUTE AUTO 0.03 K/mm3 (0.00-0.10); IMMATURE GRAN PERCENT AUTO 0 % (0-1); LYMPHOCYTES ABSOLUTE AUTO 1.02 K/mm3 (0.84-5.20); LYMPHOCYTES PERCENT AUTO 15 % (21-46); MONOCYTES ABSOLUTE AUTO 0.56 K/mm3 (0.16-1.47); MONOCYTES PERCENT AUTO 8 % (4-13); Mean Corpuscular HGB 27.5 pg (26.0-34.0); Mean Corpuscular Volume 92 fL (80-100); Mean Platelet Volume 12.1 fL (9.1-12.4); NEUTROPHILS ABSOLUTE AUTO 5.23 K/mm3 (1.96-9.15); NEUTROPHILS PERCENT AUTO 76 % (41-73); Platelet Count 177 K/mm3 (150-400); RDW Coefficient Variation 15.5 % (11.7-14.2); RDW Standard Deviation 51.9 fL (35.1-46.3); Red Blood Cell Count 3.35 M/mm3 (3.80-5.20); White Blood Cell Count 6.88 K/mm3 (4.00-11.30)
[2020-09-15 12:38] LABS: Alanine Aminotransfer (ALT/SGP 15 U/L (12-78); Albumin, Blood 3.8 g/dL (3.4-5.0); Albumin/Globulin Ratio 1.3 (0.8-1.8); Alk Phos 72 U/L (50-136); Anion Gap 10 mmol/L (6-16); Aspartate Aminotrans (AST/SGOT 15 U/L (12-37); Bilirubin, Total 1.5 mg/dL (0.1-1.0); Blood Urea Nitrogen 16 mg/dL (8-24); CO2, Blood 22 mmol/L (21-32); Calcium, Blood 8.8 mg/dL (8.5-10.1); Chloride, Blood 106 mmol/L (98-108); Creatinine, Blood 0.84 mg/dL (0.40-1.00); Glomerular Filtration Rate >60 (60-); Glucose, Blood 115 mg/dL (70-99); Potassium, Blood 3.8 mmol/L (3.5-5.5); Sodium, Blood 138 mmol/L (136-145); Total Protein, Blood 6.8 g/dL (6.4-8.2); Troponin I <0.015 ng/mL (0.000-0.040)
[2020-09-15] MEDS ORDERED: Amitriptyline H25 MG PO (13:54)
[2020-09-15] MEDS ORDERED: Cimetidine800 MG PO (13:54)
[2020-09-15] MEDS ORDERED: VASCEPA1 G1 PO (13:55)
[2020-09-15] MEDS ORDERED: ENTRESTO 97 MG1 EAC3 PO (13:55)
[2020-09-15] MEDS ORDERED: METOPROLOL SUCC25 MG PO (13:55)
[2020-09-15] MEDS ORDERED: Simvastatin10 MG PO (13:56)
[2020-09-15] MEDS ORDERED: DULOXETINE HCL60 M1 PO (13:56)
[2020-09-15] MEDS ORDERED: LEVOTHYROXINE112 MC2 PO (13:56)
[2020-09-15] MEDS ORDERED: TORSE20 PO (13:56)
[2020-09-15 16:25] LABS: Influenza A, PCR NEGATIVE (NEGATIVE); Influenza B, PCR NEGATIVE (NEGATIVE); Resp Syncytial Virus, PCR NEGATIVE (NEGATIVE); SARS-Cov-2 (COVID-19) PCR, MMC NEGATIVE (NEGATIVE)
--- NOTE | 2020-09-15 16:29 | NUR ---
Echocardiogram completed by Brenda Durant under my supervision.
[2020-09-15] MEDS ORDERED: Acetaminophen325 M1 PO (18:23)
[2020-09-15] MEDS ORDERED: TRAM50 PO ×2 (18:25→18:27)
--- NOTE | 2020-09-15 19:16 | NUR ---
PT PLEASANT SINCE ADMIT FROM ER AT 181. WAS ABLE TO REVIEW HOME MEDS WITH HER. BSC SET UP FOR HER CONVENIENCE. PT IS ALERT AND ORIENT X3, PLEASANT. NO C/O PAIN AT THIS MOMENT. H/R IRREG, NO MURMER NOTED. PER TELE JUST PLACED IS AFIB AT 100 WITH OCC PVC'S. LUNGS CLEAR UPPER, LIGHT CRACKLES BASES. RESP EASY, UNLABORED. ON R.A. BT X4. VOIDS IND TO BSC. PT ON LASIX. NO OTHER CONCERNS AT THIS TIME. BED IN LOW POSITION, CALL LITE IN REACH, CALLS APPROP
--- NOTE | 2020-09-16 04:44 | NUR ---
LIP CUTTER SUMMARY PT A&OX4, ABLE TO MAKE NEEDS KNOWN. PLEASANT AND COOPERATIVE TO CARE. PT MEDICATED FOR LOWER BACK AND NECK PAIN PER EMAR. NO C/O CP, SOB OR N&V. PT SBA TO BSC. PT ON TELE AFIB W/ OCC PVC's 105BPM. PT CURRENTLY RESTING IN BED AT THIS TIME. PT TAKES MEDS WHOLE WITH WATER. BED AT LOWEST POSITION. CALL LIGHT WITHIN REACH. PT CALLS APPROPRIATELY.
[2020-09-16 05:04] LABS: BASOPHILS ABSOLUTE AUTO 0.02 K/mm3 (0.00-0.23); BASOPHILS PERCENT AUTO 1 % (0-2); EOSINOPHILS ABSOLUTE AUTO 0.07 K/mm3 (0.00-0.68); EOSINOPHILS PERCENT AUTO 2 % (0-6); Hematocrit 28.7 % (33.0-51.0); Hemoglobin 8.6 g/dL (11.5-16.0); IMMATURE GRAN ABSOLUTE AUTO 0.01 K/mm3 (0.00-0.10); IMMATURE GRAN PERCENT AUTO 0 % (0-1); LYMPHOCYTES ABSOLUTE AUTO 1.02 K/mm3 (0.84-5.20); LYMPHOCYTES PERCENT AUTO 26 % (21-46); MONOCYTES ABSOLUTE AUTO 0.45 K/mm3 (0.16-1.47); MONOCYTES PERCENT AUTO 11 % (4-13); Mean Corpuscular HGB 27.4 pg (26.0-34.0); Mean Corpuscular Volume 91 fL (80-100); Mean Platelet Volume 12.3 fL (9.1-12.4); NEUTROPHILS ABSOLUTE AUTO 2.37 K/mm3 (1.96-9.15); NEUTROPHILS PERCENT AUTO 60 % (41-73); Platelet Count 130 K/mm3 (150-400); RDW Coefficient Variation 15.7 % (11.7-14.2); Red Blood Cell Count 3.14 M/mm3 (3.80-5.20); White Blood Cell Count 3.94 K/mm3 (4.00-11.30)
[2020-09-16 05:39] LABS: Anion Gap 8 mmol/L (6-16); Blood Urea Nitrogen 19 mg/dL (8-24); CO2, Blood 27 mmol/L (21-32); Calcium, Blood 9.1 mg/dL (8.5-10.1); Chloride, Blood 106 mmol/L (98-108); Creatinine, Blood 0.91 mg/dL (0.40-1.00); Glomerular Filtration Rate >60 (60-); Glucose, Blood 81 mg/dL (70-99); Magnesium, Blood 1.8 mg/dL (1.6-2.4); Potassium, Blood 3.3 mmol/L (3.5-5.5); Sodium, Blood 141 mmol/L (136-145)
--- NOTE | 2020-09-16 18:16 | NUR ---
SHIFT SUMMARY PT IS A&O AND ABLE TO MAKE NEEDS KNOWN. PT DENIES N/V BUT DID COMPLAIN OF PAIN IN HER BACK AND NECK THROUGH OUT THE SHIFT. HOT PACK WAS GIVEN TO PT, PT STATED IT HELPED. PT WAS ALSO MEDICATED PER EMAR FOR PAIN. THE PAIN IS INCREASED WITH MOVEMENT. PT ON TELE A-FIB 118. PT SLIGHTLY FORGETFUL. PT CURENLTY IN BED, CALL LIGHT W/IN REACH.
[2020-09-17 05:11] LABS: Albumin, Blood 3.6 g/dL (3.4-5.0); Anion Gap 7 mmol/L (6-16); Blood Urea Nitrogen 25 mg/dL (8-24); Bun/Creatinine Ratio 22.7 (12.0-20.0); CO2, Blood 28 mmol/L (21-32); Calcium, Blood 8.8 mg/dL (8.5-10.1); Chloride, Blood 102 mmol/L (98-108); Glomerular Filtration Rate 50 (60-); Glucose, Blood 92 mg/dL (70-99); Magnesium, Blood 1.8 mg/dL (1.6-2.4); Phosphorus, Blood 4.6 mg/dL (2.5-4.9); Potassium, Blood 3.9 mmol/L (3.5-5.5); Sodium, Blood 137 mmol/L (136-145)
--- NOTE | 2020-09-17 06:25 | NUR ---
SHIFT SUMMARY: JORDYN IS A&OX4, WITH SOME MILD FORGETFULNESS NOTED. VSS. SHE DID HAVE A 6 BEAT RUN OF V-TACH DURING THE NIGHT. SHE DENIES ANY CHEST PAIN OR SOB, ASYMPTOMATIC, RHYTHM RETURNED TO A-FIB. SHE IS TOLERATING PO INTAKE WELL, REPORTS MINIMAL PAIN RELIEF WITH THE MEDICATIONS, BUT STATES THAT SHE WAS ABLE TO SLEEP FOR SEVERAL HOURS. SHE IS A ONE PERSON ASSIST TO THE BATHROOM. SHE IS LYING IN BED WITH HER CALL LIGHT IN REACH. WILL REPORT TO DAY SHIFT RN.
--- NOTE | 2020-09-17 16:43 | NUR ---
SHIFT SUMMARY PATIENT MEDICATED X4 THIS SHIFT FOR PAIN. LIDO PATCH TO NECK. DENIES NAUSEA AND SHORTNESS OF BREATH. UP INDEPENDENT TO BSC, SBA W/FWW TO BR. EATING AND DRINKING WELL. MAINTAINING OXYGEN SATURATION ABOVE 95% ON ROOM AIR. AT BEDSIDE THIS AFTERNOON.
--- NOTE | 2020-09-18 04:53 | NUR ---
SHIFT SUMMARY PT SLEPT THROUGH MUCH OF THE NIGHT WHEN NOT BEING WOKEN BY STAFF. PT REPORTED CHRONIC PAIN TO NECK AND BACK. MEDICATED X 1 W/ 50 MG ULTRAM. EDEMA TO BLE'S, 1-2+. LUNG SOUNDS MOSTLY DIMINISHED THROUGHOUT WITH SOME VERY SLIGHT CRACKLES TO RIGHT MIDDLE LOBE. NO REPORTS OF ANY DIARRHEA THIS EVENING, PT REFUSED SCHEDULED BOWEL MEDS. VITAL SIGNS STABLE. WILL CONTINUE TO MONITOR.
[2020-09-18 09:19] LABS: Albumin, Blood 4.1 g/dL (3.4-5.0); Anion Gap 6 mmol/L (6-16); Blood Urea Nitrogen 27 mg/dL (8-24); Bun/Creatinine Ratio 30.5 (12.0-20.0); CO2, Blood 28 mmol/L (21-32); Calcium, Blood 9.2 mg/dL (8.5-10.1); Chloride, Blood 100 mmol/L (98-108); Creatinine, Blood 0.89 mg/dL (0.40-1.00); Glomerular Filtration Rate >60 (60-); Glucose, Blood 100 mg/dL (70-99); Potassium, Blood 3.8 mmol/L (3.5-5.5); Sodium, Blood 134 mmol/L (136-145)
[2020-09-18] MEDS ORDERED: DOCU100 PO (11:23)
[2020-09-18] MEDS ORDERED: DULO60 PO (11:24)
[2020-09-18] MEDS ORDERED: LIDOCAINE1 EAC1 TOP (11:25)
[2020-09-18] MEDS ORDERED: SENN187 PO (11:26)
--- NOTE | 2020-09-18 14:36 | NUR ---
DISCHARGE DISCHARGE MEDICATIONS AND INSTRUCTIONS EXPLAINED TO PATIENT. PATIENT STATED UNDERSTANDING. TELE HEALTH FOLLOW UP SCHEDULED WITH PCP. IV REMOVED WITHOUT DIFFICULTY. BELONGINGS WITH PATIENT. PATIENT TRANSFERED TO PRIVATE VEHICLE VIA WHEELCHAIR.
[2020-10-13] MEDS ORDERED: ALDACTONE25 MG PO (15:18)
== END 2020-09-18 12:50 | disposition home or self-care (01) | DRG 292 ==
LOC: ER 11:50 → ERHOLD 11:51 → MEDS 18:05 → ENPENDDIS 09-18 10:42 → MEDS 09-18 12:50
PROVIDERS: Emergency Medicine; Internal Medicine; ADMIT Internal Medicine
DX: I11.0 Hypertensive heart disease with heart failure (principal); I48.20 Chronic atrial fibrillation, unspecified; I50.23 Acute on chronic systolic (congestive) heart failure; I42.0 Dilated cardiomyopathy; I08.3 Combined rheumatic disorders of mitral, aortic and tricuspid valves; I27.20 Pulmonary hypertension, unspecified; Z20.822 Contact with and (suspected) exposure to COVID-19; Z51.5 Encounter for palliative care; E03.9 Hypothyroidism, unspecified; E87.6 Hypokalemia; M50.30 Other cervical disc degeneration, unspecified cervical region; F41.9 Anxiety disorder, unspecified; E78.5 Hyperlipidemia, unspecified; Z79.01 Long term (current) use of anticoagulants
CPT/HCPCS: 0241U; 36415; 71260; 80048; 80053; 80069; 83735; 83880; 84484; 85025; 93005; 93010; 93306; 96374-59; 96375-59; 96376; 97116; 97162; 99285-25; A9270; G0378; J1940; J3010; Q0177; Q9967

== ENCOUNTER 2020-10-16 08:21 | Day surgery (SDC) | payer OTHER ==
[~2020-10-16] VITALS: Ht 160 cm; Wt 65.0 kg
[~2020-10-16 08:21] MED LIST changes: +ALDACTONE25 MG PO; +Acetaminophen325 M1 PO; +Amitriptyline H25 MG PO; +Cimetidine800 MG PO; +DOCU100 PO; +DULO60 PO; +DULOXETINE HCL60 M1 PO; +ENTRESTO 97 MG1 EAC3 PO; +LEVOTHYROXINE112 MC2 PO; +LIDOCAINE1 EAC1 TOP; +METOPROLOL SUCC25 MG PO; +SENN187 PO; +Simvastatin10 MG PO; +TORSE20 PO; +VASCEPA1 G1 PO
--- NOTE | 2020-10-16 08:40 | NUR ---
TO RECOVERY ROOM FOR PROCEDURE. PT C/O 06/13 CHRONIC NECK/BACK PAIN.
--- NOTE | 2020-10-16 09:50 | NUR ---
DR. LEONARD HERE TO DISCUSS PROCEDURE.
[2020-10-16] MEDS ORDERED: PANT40 (09:56)
[2020-10-16] MEDS ORDERED: DOCU100 (09:57)
[2020-10-16] MEDS ORDERED: CIME400 PO (09:57)
[2020-10-16] MEDS ORDERED: SENN187 (09:58)
[2020-10-16] MEDS ORDERED: DULO60 (09:58)
--- NOTE | 2020-10-16 10:02 | NUR ---
TO MACHINE HEEL SPRAYER FOR PROCEDURE VIA BED.
--- NOTE | 2020-10-16 12:45 | NUR ---
PT FINISHED EATING LUNCH, DENIES CURRENT NEEDS. CALL LIGHT IN REACH. VSS.
--- NOTE | 2020-10-16 17:05 | NUR ---
DISCHARGE PT REMAINED A&OX3. PT EXPERIENCED PAIN IN HER BACK-PT STATED SHE RECENTLY HAD BACK SURGERY AND THIS WAS AND ONGOING ISSUE. WITH REPOSITIONING, HEAT AND TYLENOL RELIEF WAS ACCOMPLISHED. IV DC'D WITH FAUSTINA IN TACT. DISCHARGE PAPERWORK GONE OVER WITH PT AND SPOUSE. PT AND SPOUSE VERBALLY STATED THE UNDERSTANDING OF THE DISCHARGE EDUCATION AND DENIED ANY QUESTIONS AT THIS TIME. PT ABLE TO DRESS SELF INDEPENDANTLY. THIS NURSE WHEELED PT OUT.
== END 2020-10-16 17:00 | disposition home or self-care (01) ==
LOC: MHTC 08:21
DX: I42.0 Dilated cardiomyopathy (principal); I25.10 Atherosclerotic heart disease of native coronary artery without angina pectoris; I34.0 Nonrheumatic mitral (valve) insufficiency; I11.0 Hypertensive heart disease with heart failure; I50.9 Heart failure, unspecified; E78.5 Hyperlipidemia, unspecified; I48.11 Longstanding persistent atrial fibrillation; J44.9 Chronic obstructive pulmonary disease, unspecified; E03.9 Hypothyroidism, unspecified; K27.9 Peptic ulcer, site unspecified, unspecified as acute or chronic, without hemorrhage or perforation; T39.395S Adverse effect of other nonsteroidal anti-inflammatory drugs [NSAID], sequela; I27.20 Pulmonary hypertension, unspecified; Z88.5 Allergy status to narcotic agent; Z88.2 Allergy status to sulfonamides; Z88.8 Allergy status to other drugs, medicaments and biological substances; Z79.01 Long term (current) use of anticoagulants
CPT/HCPCS: 93451; 93458; 93460; 99152; 99153; A9270; C1769; C1894; J0690; J1644; J2250; J3010; J7030; J7050; Q9967

== ENCOUNTER → 2021-05-21 | Outpatient (CLI) | payer OTHER ==
[~2021-05-21] MED LIST changes: +CIME400 PO; +DOCU100; +DULO60; +PANT40; +SENN187
== END | disposition home or self-care (01) ==
LOC: LAB SHORT 12:55
DX: N39.0 Urinary tract infection, site not specified (principal)
CPT/HCPCS: 87077; 87086; 87186

== ENCOUNTER 2021-08-10 11:37 | Emergency (ER) | payer OTHER ==
[~2021-08-10] VITALS: Ht 160 cm; Wt 61.2 kg
[~2021-08-10 11:37] MED LIST changes: +CIPR500 PO
[2021-08-10 12:27] LABS: BASOPHILS ABSOLUTE AUTO 0.01 K/mm3 (0.00-0.23); BASOPHILS PERCENT AUTO 0 % (0-2); EOSINOPHILS PERCENT AUTO 0 % (0-6); Hematocrit 34.4 % (33.0-51.0); Hemoglobin 10.6 g/dL (11.5-16.0); IMMATURE GRAN ABSOLUTE AUTO 0.05 K/mm3 (0.00-0.10); IMMATURE GRAN PERCENT AUTO 1 % (0-1); LYMPHOCYTES ABSOLUTE AUTO 0.86 K/mm3 (0.84-5.20); LYMPHOCYTES PERCENT AUTO 11 % (21-46); MONOCYTES ABSOLUTE AUTO 0.58 K/mm3 (0.16-1.47); MONOCYTES PERCENT AUTO 7 % (4-13); Mean Corpuscular HGB Conc 30.8 g/dL (31.5-36.5); Mean Corpuscular Volume 107 fL (80-100); Mean Platelet Volume 10.8 fL (9.1-12.4); NEUTROPHILS ABSOLUTE AUTO 6.55 K/mm3 (1.96-9.15); NEUTROPHILS PERCENT AUTO 81 % (41-73); Platelet Count 239 K/mm3 (150-400); RDW Coefficient Variation 19.1 % (11.7-14.2); RDW Standard Deviation 75.5 fL (35.1-46.3); Red Blood Cell Count 3.21 M/mm3 (3.80-5.20); White Blood Cell Count 8.05 K/mm3 (4.00-11.30)
[2021-08-10 12:34] LABS: Alanine Aminotransfer (ALT/SGP 17 U/L (12-78); Albumin, Blood 3.9 g/dL (3.4-5.0); Albumin/Globulin Ratio 1.4 (0.8-1.8); Alk Phos 43 U/L (50-136); Anion Gap 11 mmol/L (6-16); Aspartate Aminotrans (AST/SGOT 19 U/L (12-37); Bilirubin, Total 0.8 mg/dL (0.1-1.0); Blood Urea Nitrogen 17 mg/dL (8-24); Bun/Creatinine Ratio 19.5 (12.0-20.0); CO2, Blood 13 mmol/L (21-32); Calcium, Blood 9.1 mg/dL (8.5-10.1); Chloride, Blood 111 mmol/L (98-108); Creatinine, Blood 0.87 mg/dL (0.40-1.00); Globulin, Blood 2.8 g/dL (2.2-4.0); Glomerular Filtration Rate >60 (60-); Glucose, Blood 109 mg/dL (70-99); Potassium, Blood 3.7 mmol/L (3.5-5.5); Sodium, Blood 135 mmol/L (136-145); Total Protein, Blood 6.7 g/dL (6.4-8.2)
== END 2021-08-10 12:37 ==
LOC: ER 11:37
PROVIDERS: Physician Assistant
DX: R11.0 Nausea (principal); Z53.21 Procedure and treatment not carried out due to patient leaving prior to being seen by health care provider
CPT/HCPCS: 36415; 80053; 85025

== ENCOUNTER 2021-10-08 14:16 | Inpatient (IN) | payer OTHER, MEDICARE ==
[~2021-10-08] VITALS: Ht 160 cm; Wt 59.8 kg
[~2021-10-08 14:16] MED LIST changes: +ELIQUIS2.5 MG PO; -ELIQUIS5 M3 PO
[2021-10-08 15:26] LABS: Source, Urine Straight Cath
[2021-10-08 15:28] LABS: BASOPHILS PERCENT AUTO 0 % (0-2); EOSINOPHILS PERCENT AUTO 0 % (0-6); IMMATURE GRAN ABSOLUTE AUTO 0.08 K/mm3 (0.00-0.10); IMMATURE GRAN PERCENT AUTO 1 % (0-1); LYMPHOCYTES ABSOLUTE AUTO 0.53 K/mm3 (0.84-5.20); LYMPHOCYTES PERCENT AUTO 7 % (21-46); MONOCYTES ABSOLUTE AUTO 0.53 K/mm3 (0.16-1.47); MONOCYTES PERCENT AUTO 7 % (4-13); Mean Corpuscular HGB 30.8 pg (26.0-34.0); Mean Corpuscular HGB Conc 29.5 g/dL (31.5-36.5); Mean Corpuscular Volume 105 fL (80-100); Mean Platelet Volume 11.3 fL (9.1-12.4); NEUTROPHILS ABSOLUTE AUTO 6.86 K/mm3 (1.96-9.15); NEUTROPHILS PERCENT AUTO 86 % (41-73); NRBC Auto 1.3 /100 WBC (0.0-0.2); Platelet Count 241 K/mm3 (150-400); RDW Coefficient Variation 16.2 % (11.7-14.2); RDW Standard Deviation 61.5 fL (35.1-46.3); Red Blood Cell Count 1.33 M/mm3 (3.80-5.20)
[2021-10-08 15:31] LABS: Hematocrit 13.9 % (33.0-51.0); Hemoglobin 4.1 g/dL (11.5-16.0)
[2021-10-08 15:32] LABS: Bilirubin, Urine Neg (Neg); Blood, Urine Neg (Neg); Glucose Qualitative, Urine Neg (Neg); Ketones, Urine Neg (Neg); Leukocyte Esterase, Urine Neg (Neg); Nitrite, Urine Neg (Neg); Protein, Urine 1+ (Neg); Specific Gravity, Urine 1.015 (1.003-1.022); Urobilinogen, Urine NORM (Normal)
[2021-10-08 15:40] LABS: Appearance, Urine Clear (Clear); Color, Urine Pale Yellow (P-Yellow)
[2021-10-08 15:47] LABS: Alanine Aminotransfer (ALT/SGP 16 U/L (12-78); Albumin, Blood 3.4 g/dL (3.4-5.0); Albumin/Globulin Ratio 1.4 (0.8-1.8); Alk Phos 37 U/L (50-136); Anion Gap 11 mmol/L (6-16); Aspartate Aminotrans (AST/SGOT 8 U/L (12-37); Bilirubin, Total 0.7 mg/dL (0.1-1.0); Blood Urea Nitrogen 21 mg/dL (8-24); Bun/Creatinine Ratio 25.2 (12.0-20.0); CO2, Blood 18 mmol/L (21-32); Calcium, Blood 8.4 mg/dL (8.5-10.1); Chloride, Blood 100 mmol/L (98-108); Creatinine, Blood 0.83 mg/dL (0.40-1.00); Globulin, Blood 2.4 g/dL (2.2-4.0); Glomerular Filtration Rate >60 (60-); Glucose, Blood 112 mg/dL (70-99); Potassium, Blood 3.1 mmol/L (3.5-5.5); Sodium, Blood 129 mmol/L (136-145); Total Protein, Blood 5.8 g/dL (6.4-8.2)
--- NOTE | 2021-10-08 19:45 | NUR ---
PT ARRIVES TO ICU 8 FROM ER VIA [facility] FOR DX OF ACUTE BLOOD LOSS ANEMIA WITH POSS UPPER GI BLEED. PT DENIES HEMATEMESIS OR COFFEE GROUND EMESIS, DENIES ABNORMAL BOWEL MOVEMENTS, DOES ADMIT TO INCREASING DIZZINESS OVER THE PAST 2 WEEKS, DOES ADMIT TO INCREASING WEAKNESS OVER THE PAST 2 WEEKS. SHE C/O INCREASED DIZZINESS WITH TURNING HEAD SIDE TO SIDE IN BED, SHE DENIES CURRENT NAUSEA. SHE DOES C/O BACK AND NECK PAIN WHICH SHE STATES IS CHRONIC IN NATURE, REQUESTS SUPPORT PLACED BEHIND NECK, TOWEL ROLL PLACED AND PT STATES THAT THIS ALLEVIATES PAIN TO ACCEPTABLE LEVEL. SHE STATES THAT SHE IS TOO TIRED TO ANSWER ADMISSSION QUESTIONS AND IS UNSURE OF THE EXACT DOSEAGES OF HER MEDICATIONS. SHE REQUESTS THAT STAFF REVIEW HER MEDICATION LIST WITH [facility] IN [place] IN AM. SHE ALSO STATES THAT [facility] WILL HAVE A RECORD OF HER VACCINATIONS SHE IS UNSURE OF WHEN SHE RECEIVED THEM. SHE COMPLAINS OF FEELING COLD, IS NOTED AFEBRILE, WARM BLANKETS ARE APPLIED X 3 ON COMPLETION OF ASSESSMENT. PT IS NOTED TO HAVE PRBCS INFUSING AT 320 ML/HR, RATE DECREASED TO 150 ML/HR, POTASSIUM IS INFUSING AT 200 ML/HR WITH NS AT 50 ML/HR, PT DOES C/O BURNING PAIN PROXIMAL TO LEFT IV INSERTION SITE, POTASSIUM RATE DECREASED TO 50 ML/HR AND PT REPORTS PAIN IS IMPROVED.
[2021-10-08 22:00] LABS: Hematocrit 23.4 % (33.0-51.0); Hemoglobin 7.5 g/dL (11.5-16.0)
[2021-10-08 22:16] LABS: Influenza A, PCR NEGATIVE (NEGATIVE); Influenza B, PCR NEGATIVE (NEGATIVE); Resp Syncytial Virus, PCR NEGATIVE (NEGATIVE); SARS-Cov-2 (COVID-19) PCR, MMC NEGATIVE (NEGATIVE)
[2021-10-09 04:13] LABS: BASOPHILS PERCENT AUTO 0 % (0-2); EOSINOPHILS ABSOLUTE AUTO 0.01 K/mm3 (0.00-0.68); EOSINOPHILS PERCENT AUTO 0 % (0-6); Hematocrit 23.7 % (33.0-51.0); Hemoglobin 7.3 g/dL (11.5-16.0); IMMATURE GRAN PERCENT AUTO 1 % (0-1); LYMPHOCYTES ABSOLUTE AUTO 0.58 K/mm3 (0.84-5.20); LYMPHOCYTES PERCENT AUTO 8 % (21-46); MONOCYTES ABSOLUTE AUTO 0.57 K/mm3 (0.16-1.47); MONOCYTES PERCENT AUTO 8 % (4-13); Mean Corpuscular HGB 29.7 pg (26.0-34.0); Mean Corpuscular HGB Conc 30.8 g/dL (31.5-36.5); Mean Platelet Volume 10.3 fL (9.1-12.4); NEUTROPHILS ABSOLUTE AUTO 5.86 K/mm3 (1.96-9.15); NEUTROPHILS PERCENT AUTO 82 % (41-73); NRBC ABSOLUTE 0.09 K/mm3 (0.00-0.02); NRBC Auto 1.3 /100 WBC (0.0-0.2); Platelet Count 158 K/mm3 (150-400); RDW Coefficient Variation 17.2 % (11.7-14.2); RDW Standard Deviation 58.8 fL (35.1-46.3); Red Blood Cell Count 2.46 M/mm3 (3.80-5.20); White Blood Cell Count 7.12 K/mm3 (4.00-11.30)
[2021-10-09 04:22] LABS: Mean Corpuscular Volume 96 fL (80-100)
[2021-10-09 04:34] LABS: Alanine Aminotransfer (ALT/SGP 12 U/L (12-78); Albumin, Blood 3.5 g/dL (3.4-5.0); Albumin/Globulin Ratio 1.3 (0.8-1.8); Alk Phos 38 U/L (50-136); Anion Gap 8 mmol/L (6-16); Aspartate Aminotrans (AST/SGOT 13 U/L (12-37); Bilirubin, Total 2.3 mg/dL (0.1-1.0); Blood Urea Nitrogen 16 mg/dL (8-24); Bun/Creatinine Ratio 23.2 (12.0-20.0); CO2, Blood 20 mmol/L (21-32); Calcium, Blood 8.4 mg/dL (8.5-10.1); Chloride, Blood 103 mmol/L (98-108); Creatinine, Blood 0.69 mg/dL (0.40-1.00); Globulin, Blood 2.7 g/dL (2.2-4.0); Glomerular Filtration Rate >60 (60-); Glucose, Blood 86 mg/dL (70-99); Sodium, Blood 131 mmol/L (136-145); Total Protein, Blood 6.2 g/dL (6.4-8.2)
--- NOTE | 2021-10-09 05:30 | NUR ---
PT NEW ADMIT THIS SHIFT FOR ACUTE BLOOD LOSS ANEMIA, PRBC X 2 UNITS ADMIN, SECOND UNIT TRANSFUSION WAS INITIATED IN ER AND COMPLETED AFTER ARRIVAL TO ICU. PT CONTINUES TO REPORT DIZZINESS WITH MOVEMENT AND STANDING HOWEVER DOES BELIEVE THAT IT IS IMPROVED SOMEWHAT FROM ARRIVAL TO ER YESTERDAY. SHE DOES REPORT FEELING INCREASING STRENGHT ALTHOUGH STILL WEAK COMPARED TO BASELINE. SHE TRANSFERS [facility] [facility] [place] 2 PERSON CONTACT GUARD ASSIST. PT HAS BEEN RELUCTANT TO TAKE MORPHINE FOR PAIN THIS SHIFT AND HAS STATED THAT SHE WOULD PREFER TO TAKE TYLENOL, 1 DOSE OF TYLENOL 650 MG PO ADMIN WHICH CONTROLLED PT'S PAIN WELL FOR CLOSE TO 4 HOURS, SHE DID ACCEPT 1 DOSE OF MORPHINE 2.5 MG IV HOWEVER STATED THAT SHE VERY MUCH DID NOT CARE FOR THE "FLOATY" SIDE EFFECT. PRESSURES HAVE MAINTAINED THROUGHOUT SHIFT, COLOR IS SLIGHTLY IMPROVED FROM ADMIT, AFIB WITH PVCS CONTINUES OCCASIONAL A FLUTTER IS NOTED, RATE REMAINS CONTROLLED 80-100 WITH BRIEF INCREASES TO LOW 110S WITH INCREASES IN ACTIVITY. LUNGS REMAIN CLEAR THROUGHOUT AND SATS CONTINUE TO MAINTAIN NEAR 100% ON ROOM AIR. ABD REMAINS SOFT WITH ACTIVE BOWEL TONES X 4, PT HAS EXPRESSED HUNGER THIS SHIFT, HAS TOLERATED WATER AND BEEF BROTH WELL. VOIDS CLEAR YELLOW URINE WITHOUT DIFFICULTY, ATTENDS REMAINS IN PLACE FOR STRESS INCONTINENCE. BED ALARM CONTINUES ARMED THROUGHOUT SHIFT.
--- NOTE | 2021-10-09 06:05 | NUR ---
V-TACH 8 BEAT RUN OF V-TACH NOTED, PT SLEEPING AT THIS TIME.
[2021-10-09] MEDS ORDERED: ENTRESTO 97 MG1 EACH PO (08:27)
--- NOTE | 2021-10-09 08:30 | NUR ---
ASSUMED CARE. AOX3, FORGETFUL AT TIMES, [place]. ABLE TO MAKE HER NEEDS KNOWN. FOLLOWS DIRECTIONS. REPORTS DIZZINESS AND PAIN WHEN SHE GETS UP TO THE COMMODE. THIS TENDS TO SUBSIDE SHORTLY AFTER GETTING BACK INTO BED AND WARMED UP. AFIB ON THE MONITOR, WITH PVC'S. STABLE BP AND PULSE PER MONITOR. DENIES CHEST PAIN. 2+EDEMA IN BLE AND UPPER HANDS. UP TO THE COMMODE WITH GOOD URINE OUTPUT. REPORTS OCCATIONAL OFF AND ON PAIN IN THE ABDOMIN BUT CHRONIC PAIN IN SHOULDERS, NECK AND BACK. LIKES TO LAY ON THE LEFT SIDE, WHICH IS THE MOST COMFORTABLE FOR HER. TOOK ALL MEDS, SIPS OF WATER. REMINDED ABOUT PROCEDURE THIS AFTERNOON. GOT BACK IN BED, COVERED WITH LARGE AMOUNT OF COVERS SHE IS COLD. CALL LIGHT IN REACH. WILL CONTINUE TO MONITOR.
[2021-10-09] MEDS ORDERED: TORSE20 PO (08:36)
--- NOTE | 2021-10-09 09:55 | NUR ---
PATIENT UP TO BSC, C/O PAIN WHEN GETTING COLD AND UP. IS STARTING TO GET IRRITABLE BECAUSE SHE IS URINATING MORE THEN SHE USUALLY DOES. ASK IF SHE CAN HAVE HER IVF REMOVED, INFORMED HER NO AND EXPLAINED TO HER THE REASONING BEHIND THIS.
[2021-10-09 10:43] LABS: Hematocrit 24.2 % (33.0-51.0); Hemoglobin 7.6 g/dL (11.5-16.0)
--- NOTE | 2021-10-09 11:45 | NUR ---
ASSISTED PT OOB TO [facility] [place]. PT REQUIREDJ TWO PERSON ASSIST. PT APPEARS QUITE ANXIOUS. SHE IS TEARFUL AT TIMES. PT DEMANDING THAT THE PILLOWS AND TOWEL ROLL BE REPOSITIONED FREQUENTLY. WHEN ASKE WHERE SHE WOULD LIKE THE PILLOWS AND TOWEL ROLL MOVED TO, PT STATES "I CAN'T TALK! I HURT TOO BAD AND I'M FREEZING TO !" PT BEGAN CRYING AND WAS INCONSOLABLE. DR. LOPEZ CONTACTED PT CONTINUES TO COMPLAIN OF PAIN DESPITE BEING MEDICATED WITH MORPHINE AT APROXIMATELY 1000. PT MEDICATED WITH DILAUDID 0.25 MG IVP X 1-SEE EMAR. FALK, PRIMARY RN UPDATED.
--- NOTE | 2021-10-09 15:00 | NUR ---
PATIENT RESTING COMFORTABLE IN BED. SHE APPOLIGIZES SEVERAL TIMES FOR HER FRUSTRATIONS AND ANGER AT TIMES, STATES SHE JUST DOES NOT FEEL WELL. ENCOURAGE BETTER BEHAVORIOR WITH STAFF WE ARE THERE TO HELP.
[2021-10-09 16:06] LABS: Hematocrit 23.9 % (33.0-51.0); Hemoglobin 7.3 g/dL (11.5-16.0)
--- NOTE | 2021-10-09 17:15 | NUR ---
BOTH OF PT PERIPHERAL IV'S POSITIONAL AND LEAKING. EXTENDED DWELL CATHETER PLACED. PT APPEARS VERY IRRITABLE AND HYPERSENSITIVE TO TACTILE STIMULI. FOR EXAMPLE, WHEN ATTEMPTING TO POSITION PT RIGHT ARM TO POSITION ON PILLOW FOR EXTENDED DWELL CATHETER PLACEMENT, PT SCREAMED "OUCH!" SHE THEN JERKED HER ARM AWAY AND TURNED OVER TO HER LEFT SIDE. RN'S ATTEMPTED TO EXPLAIN THE NEED FOR IV ACCESS IN ORDER TO DO SURGICAL TECH. PT IS INCONSOLABLE AT TIMES. AFTER SEVERAL MINUTES, PT WAS COOPERATIVE AND POWERGLIDE PLACED.
--- NOTE | 2021-10-09 18:19 | NUR ---
HAVE BEEN UNABLE TO GET BLOOD PRESSURE OVER THE LAST SEVERAL HOURS DUE TO MONITOR TECHS ADJUSTING MONTIORS, THEN THE PATIENT WAS IN PROCEDURE FOR POWERGLIDE WHICH WAS VERY DIFFICULT TO OBTAIN. BP CUFF WAS PLACED BACK ON ONCE EVERYTHING WAS COMPLETED.
--- NOTE | 2021-10-09 18:32 | NUR ---
SHIFT SUMMARY: AOX3, FORGETFUL, [place]. WAS VERY IRRITABLE T/O THE DAY ANYTHING FROM GETTING TO MUCH IVF TO BEING COLD DISPITE SEVERAL INTERVENTIONS TO MAKE HER COMFORTABLE. PAIN MEDICATION WAS CHANGED TO DILUDID 0.5MG Q4. WHICH HAS HELPED TO MANAGE PAIN FROM 8 TO 6. LUNG SOUNDS ARE CLEAR T/O, ON RA, SATS 98-100% WHEN PULSE OX WANTS TO COME IN CLEAR. PATIENT TENDS TO PULL ON CORD FREQUENTLY SHE DISLIKES HAVING ALL THE CORDS. EDUCATION WAS PROVIDED TO REASONINGS FOR MONTIORING. CHRONIC AFIB ON THE MONITOR W/ CP. FREQUENT PVC'S. EDEMA TO BILATERAL HANDS AND FEET, NON-PITTING. HR AVERAGE IS IN THE 80'S. MAP AVERAGE ABOVE 65. OFF AND ON ABDOMINAL PAIN AND NAUSEA TODAY, NOTHING THAT NEEDED AN INTERVENTION IT TENDED TO RESOLVE ONCE SHE RELAXED AND ANXIETY RESOLVED. FREQUENT URINATION T/O DAY FROM 300-500CC AT A TIME. ABLE TO GET UP WITH SBA TO 1 PERSON. DID FEEL VERY WEAK AND DIZZY AFTER BEING UP FOR FEW MIN. SKIN PALE, COOL TO TOUCH, FRAGILE, NO BREAKDOWN AT THIS TIME. SOME SCATTERED BRUISING. BOTH PERPHIAL IV'S DC'D DUE TO LEAKAGE, NEW PG PLACED IN R UPPER ARM. IVF NS CONTINUE TO INFUSE AT 50CC/HR. NPO AFTER 1300 FOR PLANNED SCOPE TONIGHT. HAS CALLED SEVERAL TIMES TO CHECK ON . WILL REPORT TO ONCOMING SHIFT.
--- NOTE | 2021-10-09 20:00 | NUR ---
ASSUMED CARE OF PT AT 1915. REPORT RECEIVED PT PRESENTS IN BED ALERT AND ORIENTED. SOMEWHAT ANXIOUS AND VERY SPECIFIC TO WHAT SHE IS WANTING. ALLOWED PT TO EXPRESS HER FEELINGS. WHEN ASKED IF SHE WAS SCARED, PT REPLIES THAT SHE IS VERY SCARED BEING IN THE HOSPITAL AND UPCOMING ENDOSCOPY. TEACHING DONE ON PROCEDURE. PT DOES TEND TO BE LESS ANXIOUS AFTER TEACHING. WILL REVIEW CHART AND PLAN OF CARE FOR THIS PT.
--- NOTE | 2021-10-09 20:46 | NUR ---
10/09/212045 CHACE WARD History, Chart, Medications and Allergies reviewed before start of procedure. Patient confirms NPO status and agrees with scheduled surgery. 3-LEAD EKG REVIEWED WITH PHYSICIAN PRIOR TO START OF PROCEDURE. MONITOR INTACT WITH CONTINUOUS PULSE OXIMETRY AND INTERMITTENT BP. PATIENT DETERMINED TO BE ASA APPROPRIATE FOR PROPOFOL SEDATION PRIOR TO START OF PROCEDURE BY DR. DIGGS. 02 VIA POM.
--- NOTE | 2021-10-09 22:15 | NUR ---
PT COMPLETES ENDOSCOPY, AND HAS AWAKENED POST PROCEDURE. DID INFORM PT OF FINDINGS AND THAT SHE WAS NOT ACTIVELY BLEEDING AT THIS TIME. ALSO THAT DR DIGGS ORDERED HER TO BE ABLE TO EAT. PROVIDED ROAST BEEF SANDWHICH, MILK, AND APPLESAUCE THAT PT VOICED SHE WAS VERY THANKFUL. HAVE GOTTEN PT UP TO BEDSIDE COMMODE WHERE SHE WAS ABLE TO VOID Q.S. ONE PERSON ASSIST. WILL CONTINUE TO MONITOR PT.
--- NOTE | 2021-10-09 23:01 | NUR ---
PT ABLE TO EAT SANDWHICH, APPLESAUCE, AND MILK WITHOUT NAUSEA. PT HAS BEEN MEDICATED WITH TYLENOL FOR HER CHRONIC NECK AND SHOULDER PAIN. DOES STATE THAT SHE TAKES ULTRAM AT HOME FOR THIS PAIN.
[2021-10-10 04:46] LABS: BASOPHILS PERCENT AUTO 0 % (0-2); EOSINOPHILS ABSOLUTE AUTO 0.02 K/mm3 (0.00-0.68); EOSINOPHILS PERCENT AUTO 0 % (0-6); Hemoglobin 6.3 g/dL (11.5-16.0); IMMATURE GRAN ABSOLUTE AUTO 0.05 K/mm3 (0.00-0.10); IMMATURE GRAN PERCENT AUTO 1 % (0-1); LYMPHOCYTES ABSOLUTE AUTO 0.42 K/mm3 (0.84-5.20); LYMPHOCYTES PERCENT AUTO 8 % (21-46); MONOCYTES ABSOLUTE AUTO 0.58 K/mm3 (0.16-1.47); MONOCYTES PERCENT AUTO 11 % (4-13); Mean Corpuscular HGB 29.6 pg (26.0-34.0); Mean Corpuscular Volume 99 fL (80-100); Mean Platelet Volume 10.7 fL (9.1-12.4); NEUTROPHILS ABSOLUTE AUTO 4.38 K/mm3 (1.96-9.15); NEUTROPHILS PERCENT AUTO 80 % (41-73); NRBC ABSOLUTE 0.04 K/mm3 (0.00-0.02); NRBC Auto 0.7 /100 WBC (0.0-0.2); Platelet Count 156 K/mm3 (150-400); RDW Coefficient Variation 17.7 % (11.7-14.2); Red Blood Cell Count 2.13 M/mm3 (3.80-5.20); White Blood Cell Count 5.45 K/mm3 (4.00-11.30)
--- NOTE | 2021-10-10 04:50 | NUR ---
PT'S BLOOD PRESSURES HAVE REMAINED SOMEWHAT LOW. NO VERTIGO. ASYPTOMATIC WITH THIS. PT HAS BEEN UP TO BEDSIDE COMMODE AND HAS NOT BEEN ABLE TO VOID. SPOT CHECK WITH BLADDER SCANNER REVEALS 158 ML. PT MADE AWARE. SHE STATES THAT SHE CANNOT URINATE UNLESS SHE IS "REALLY WARM" PT'S ROOM 76 DEGREES. DID APPLY WARMED BLANKETS. PT ABRUPTLY YELLS, "I HURT!" AND BECOMES UNCONSOLUABLE. DID MEDICATE PT WITH 0.5 MG DILAUDID PER PRN EMAR. PT ASKS SAME QUESTIONS ABOUT HER ENDOSCOPY, AND THOSE QUESTIONS ANSWERED AND REINFORCED. PT CURRENTLY IN BED SLEEPING AFTER BEING MEDICATED. NO S/S BLEEDING TO NOTE. WILL CONTINUE TO MONITOR PT.
[2021-10-10 05:06] LABS: Bun/Creatinine Ratio 13.9 (12.0-20.0); Calcium, Blood 8.1 mg/dL (8.5-10.1); Creatinine, Blood 0.93 mg/dL (0.40-1.00); Potassium, Blood 3.3 mmol/L (3.5-5.5)
--- NOTE | 2021-10-10 06:26 | NUR ---
CALL MADE TO DR JENNINGS THIS MORNING CONCERNING POTASSIUM OF 3.3 AND HGB AT 6.3 BEING A DROP FROM 7.3. ORDER RECEIVED FOR POTASSIUM, AND FOR A UNIT OF PRBC'S. BLOOD TRANSFUSING AT THIS TIME. NO S/S TRANSFUSION REACTION TO NOTE. PT BECOMES ANXIOUS AND VERY SCARED (PER PATIENT) WHEN TOLD SHE NEEDED ANOTHER UNIT OF PRBC'S. PT CALMS AFTER EXPLANATION. WILL CONTINUE TO MONITOR PT, AND WILL REPORT OFF TO ONCOMING RN.
[2021-10-10 12:28] LABS: Hematocrit 25.5 % (33.0-51.0); Hemoglobin 8.1 g/dL (11.5-16.0)
[2021-10-10 13:05] LABS: Source, Urine Clean Catch
[2021-10-10 13:09] LABS: Appearance, Urine Clear (Clear); Bilirubin, Urine Neg (Neg); Blood, Urine 4+ (Neg); Color, Urine Yellow (P-Yellow); Glucose Qualitative, Urine Neg (Neg); Ketones, Urine Neg (Neg); Leukocyte Esterase, Urine 1+ (Neg); Nitrite, Urine Neg (Neg); Protein, Urine Neg (Neg); Specific Gravity, Urine 1.015 (1.003-1.022); Urobilinogen, Urine NORM (Normal)
[2021-10-10 13:43] LABS: Squamous Epithelial Cells Few /hpf (Few); White Blood Cells, Urine 0-2 /hpf (0-5)
[2021-10-10 13:44] LABS: Transitional Epithelial Cells Rare /hpf (0-Rare)
[2021-10-10 13:54] LABS: Bacteria Mod /hpf
--- NOTE | 2021-10-10 19:00 | NUR ---
NO ACUTE CHANGES THIS SHIFT. A&0X4. ANXIOUS. ABLE TO BEAR HER OWN WEIGHT UPON WALKING BUT REQUIRES 1 PERSON ASSIST. NECK AND BACK PAIN TREATED MULTIPILE TIMES, SEE EMAR. ROOM AIR. A FIB RATE 80-110S. GOOD APPETITE. GOT UP TO TOILET MULTIPLE TIMES TODAY. UA SENT. NO BM. UPDATED VIA PHONE.
--- NOTE | 2021-10-10 20:00 | NUR ---
ASSUMED CARE OF PT AT 1915. REPORT RECEIVED. PT PRESENTS IN BED. ALERT AND ORIENTED. SOMEWHAT ANXIOUS. ASKS MANY QUESTIONS OF HOW SHE IS DOING. ANSWERED THOSE FOR PT. NO S/S BLEEDING. PT HAS BEEN UP TO TOILET TO VOID. DID NOT WAIT FOR TOE TRIMMER TO RE-ENTER ROOM AND AMBULATED BACK TO BED ON HER OWN. PT BEING A HIGH FALL RISK, WAS CAUTIONED ABOUT SELF TRANSFERRING WITHOUT ASSIST. DID CALL DR JACOBS AND OBTAINED ORDER FOR 5MG MELATONIN TO ASSIST PT IN GETTING REST THIS NIGHT. PT STATES THAT SHE DOES NOT KNOW IF SHE WANTS MELATONIN THIS NIGHT. WILL OFFER WITH HS MEDICATIONS. WILL REVIEW CHART AND PLAN OF CARE FOR THIS PT.
[2021-10-11 05:05] LABS: BASOPHILS ABSOLUTE AUTO 0.01 K/mm3 (0.00-0.23); BASOPHILS PERCENT AUTO 0 % (0-2); EOSINOPHILS ABSOLUTE AUTO 0.03 K/mm3 (0.00-0.68); EOSINOPHILS PERCENT AUTO 1 % (0-6); Hematocrit 23.9 % (33.0-51.0); Hemoglobin 7.6 g/dL (11.5-16.0); IMMATURE GRAN ABSOLUTE AUTO 0.03 K/mm3 (0.00-0.10); IMMATURE GRAN PERCENT AUTO 1 % (0-1); LYMPHOCYTES ABSOLUTE AUTO 0.37 K/mm3 (0.84-5.20); LYMPHOCYTES PERCENT AUTO 7 % (21-46); MONOCYTES ABSOLUTE AUTO 0.68 K/mm3 (0.16-1.47); MONOCYTES PERCENT AUTO 14 % (4-13); Mean Corpuscular HGB 30.9 pg (26.0-34.0); Mean Corpuscular HGB Conc 31.8 g/dL (31.5-36.5); Mean Corpuscular Volume 97 fL (80-100); Mean Platelet Volume 10.9 fL (9.1-12.4); NEUTROPHILS PERCENT AUTO 78 % (41-73); NRBC ABSOLUTE 0.03 K/mm3 (0.00-0.02); NRBC Auto 0.6 /100 WBC (0.0-0.2); Platelet Count 150 K/mm3 (150-400); RDW Coefficient Variation 16.6 % (11.7-14.2); RDW Standard Deviation 56.4 fL (35.1-46.3); Red Blood Cell Count 2.46 M/mm3 (3.80-5.20); White Blood Cell Count 5.02 K/mm3 (4.00-11.30)
[2021-10-11 05:31] LABS: Bun/Creatinine Ratio 16.2 (12.0-20.0); Calcium, Blood 8.3 mg/dL (8.5-10.1); Creatinine, Blood 1.05 mg/dL (0.40-1.00); Potassium, Blood 3.7 mmol/L (3.5-5.5)
--- NOTE | 2021-10-11 05:44 | NUR ---
PT HAS BEEN BECOMING MORE INDEPENDENT WITH TRANSFERS TO TOILET. HAS VOIDED Q.S. HAS NOT HAD BM. NO S/S BLEEDING TO NOTE. PT NOTED TO HAVE SOME BRUISING FROM UNDER BLOOD PRESSURE CUFF LEFT ARM. WILL ROTATE SITE TO PREVENT FURTHER BRUISING. PT HAS HAD SOME SLEEP THIS NIGHT AFTER NELATONIN. WILL CONTINUE TO MONITOR PT, AND WILL REPORT OFF TO ONCOMING RN.
--- NOTE | 2021-10-11 09:14 | NUR ---
ASSUMED CARE. REPORT RECEIVED FROM ARUN. PT IS A&OX4. MOOD IS ANXIOUS AND IRRITABLE. COMPLAINED OF PAIN IN NECK AND BACK. TREATED PER EMAR. EDUCATED ON PURPOSE OF SCDS, PT STILL REFUSES TO WEAR THEM . UP TO TOILET WITH SUPERVISION, SHE HAS A MILD UNSTEADY GAIT. REFUSED TO SIT IN CHAIR FOR BREAKFAST, WILL ENCOURAGE CHAIR TIME FOR LUNCH. ROOM AIR. LUNGS CLEAR.
[2021-10-11 16:24] LABS: Hemoglobin 8.1 g/dL (11.5-16.0); Mean Corpuscular HGB 30.7 pg (26.0-34.0); Mean Corpuscular HGB Conc 31.2 g/dL (31.5-36.5); Mean Corpuscular Volume 99 fL (80-100); Mean Platelet Volume 10.9 fL (9.1-12.4); NRBC ABSOLUTE 0.02 K/mm3 (0.00-0.02); NRBC Auto 0.3 /100 WBC (0.0-0.2); Platelet Count 167 K/mm3 (150-400); RDW Coefficient Variation 17.2 % (11.7-14.2); RDW Standard Deviation 58.5 fL (35.1-46.3); Red Blood Cell Count 2.64 M/mm3 (3.80-5.20); White Blood Cell Count 6.95 K/mm3 (4.00-11.30)
[2021-10-11 16:43] LABS: Albumin, Blood 3.1 g/dL (3.4-5.0); Anion Gap 7 mmol/L (6-16); Blood Urea Nitrogen 21 mg/dL (8-24); Bun/Creatinine Ratio 17.8 (12.0-20.0); CO2, Blood 25 mmol/L (21-32); Calcium, Blood 8.4 mg/dL (8.5-10.1); Chloride, Blood 99 mmol/L (98-108); Creatinine, Blood 1.18 mg/dL (0.40-1.00); Glomerular Filtration Rate 44 (60-); Glucose, Blood 109 mg/dL (70-99); Magnesium, Blood 1.6 mg/dL (1.6-2.4); Phosphorus, Blood 3.7 mg/dL (2.5-4.9); Potassium, Blood 4.1 mmol/L (3.5-5.5); Sodium, Blood 131 mmol/L (136-145)
--- NOTE | 2021-10-11 17:21 | NUR ---
SHIFT SUMMARY REMAINS A&OX4. ROOM AIR. GOT UP MULTIPLE TIMES TO TOILET. SAT IN CHAIR FOR LUNCH. WALKED IN ROOM WITH WALKER. PAIN MANAGEMENT IS ADEQUATE. REMAINS IN A FIB. HAD INCREASING PVCS THIS AFTERNOON WITH EPISODES OF TRIGEMONY. DR. LOPEZ NOTIFIED, LABS ORDERED. NOTIFIED OF LAB RESULTS, 1 GM MAG ORDERED, NO OTHER ORDERS AT THIS TIME. NO BM THIS SHIFT.
[2021-10-12 04:38] LABS: BASOPHILS ABSOLUTE AUTO 0.01 K/mm3 (0.00-0.23); BASOPHILS PERCENT AUTO 0 % (0-2); EOSINOPHILS ABSOLUTE AUTO 0.06 K/mm3 (0.00-0.68); EOSINOPHILS PERCENT AUTO 1 % (0-6); Hematocrit 25.4 % (33.0-51.0); Hemoglobin 8.1 g/dL (11.5-16.0); IMMATURE GRAN ABSOLUTE AUTO 0.05 K/mm3 (0.00-0.10); IMMATURE GRAN PERCENT AUTO 1 % (0-1); LYMPHOCYTES ABSOLUTE AUTO 0.52 K/mm3 (0.84-5.20); LYMPHOCYTES PERCENT AUTO 10 % (21-46); MONOCYTES ABSOLUTE AUTO 0.76 K/mm3 (0.16-1.47); MONOCYTES PERCENT AUTO 14 % (4-13); Mean Corpuscular HGB 31.4 pg (26.0-34.0); Mean Corpuscular HGB Conc 31.9 g/dL (31.5-36.5); Mean Corpuscular Volume 98 fL (80-100); Mean Platelet Volume 11.2 fL (9.1-12.4); NEUTROPHILS PERCENT AUTO 75 % (41-73); Platelet Count 132 K/mm3 (150-400); RDW Standard Deviation 57.8 fL (35.1-46.3); Red Blood Cell Count 2.58 M/mm3 (3.80-5.20)
[2021-10-12 04:53] LABS: Bun/Creatinine Ratio 19.8 (12.0-20.0); Calcium, Blood 8.5 mg/dL (8.5-10.1); Creatinine, Blood 1.16 mg/dL (0.40-1.00); Potassium, Blood 4.6 mmol/L (3.5-5.5)
--- NOTE | 2021-10-12 05:51 | NUR ---
rested through out night. up to toilet as needed. still awaiting to send hpylori stool, no BM since admit. HGB stable. hospital monitor on, continues to have AFib with freq PVC's. Had short 5 run of v-tach in night, no further occurances. medicated as needed for pain.
--- NOTE | 2021-10-12 10:08 | NUR ---
ASSUMPTION OF CARE A&OX4. SHE IS LESS IRRITABLE THIS MORNING. ROOM AIR. REMAINS A FIB. UP TO TOILET WITH WALKER. STRENGTH IMPROVING. GOOD APPETITE. NECK PAIN CONTINUES, TREATED PER MAR.
--- NOTE | 2021-10-12 14:35 | NUR ---
PT TRANSFERRED TO SURGICAL FLOOR AT 1430. ALL BELONGINGS TRANSFERRED WITH PATIENT. FAMILY NOTIFIED OF TRANSFER.
--- NOTE | 2021-10-12 18:16 | NUR ---
SHIFT SUMMARY PT TRANSFERRED FROM ICU THIS SHIFT. A DUODENAL ULCER WAS FOUND WITH NO EVIDENCE OF BLEEDING. PT NEEDS TO HAVE A BOWEL MOVEMENT BEFORE DISCHARGE. PT HAD ONE BM BUT IT WAS VERY SMALL. SHE REPORT SOME BLOOD WITH STRAINING. GIVEN AN ADDITIONAL DOSE OF MIRALAX. VSS. WILL REPORT TO ADRIANNE COVARRUBIAS.
--- NOTE | 2021-10-13 05:24 | NUR ---
PT IS A&OX4, SBA W/ FWW AND IS ABLE TO MAKE NEEDS KNOWN. HERE FOR ANEMIA, PT HAD A HGB OF 4.1 UPON ARRIVIAL BUT IT HAS SINCE CORRECTED. DUODENAL ULCER FOUND BUT NOT CURRENTLY BLEEDING, PT STILL NEEDS AN H PYLORI TEST, HAD A SMALL BM BUT ONLY SMALL PEANUT SIZED. BP HAVE BEEN SOFT THIS SHIFT AND PT COMPLAINS OF LIGHT HEADNESS. WILL CONTINUE TO MONITOR THIS PATIENT.
--- NOTE | 2021-10-13 11:06 | NUR ---
PATIENT UP TO BR USING FWW, STEADY. HAD VERY LARGE FORMED BM, BROWN. ULTRAM GIVEN EARLIER FOR C/O GENERALIZED ACHING ALL OVER. AT THIS TIME REQUEST TYLENOL, GIVEN. NS BOLUS INFUSING AT THIS TIME PER NEW ORDER.
[2021-10-13 11:34] LABS: BASOPHILS ABSOLUTE AUTO 0.01 K/mm3 (0.00-0.23); BASOPHILS PERCENT AUTO 0 % (0-2); EOSINOPHILS ABSOLUTE AUTO 0.08 K/mm3 (0.00-0.68); EOSINOPHILS PERCENT AUTO 1 % (0-6); Hematocrit 25.2 % (33.0-51.0); Hemoglobin 7.8 g/dL (11.5-16.0); IMMATURE GRAN ABSOLUTE AUTO 0.03 K/mm3 (0.00-0.10); IMMATURE GRAN PERCENT AUTO 1 % (0-1); LYMPHOCYTES ABSOLUTE AUTO 0.66 K/mm3 (0.84-5.20); LYMPHOCYTES PERCENT AUTO 10 % (21-46); MONOCYTES ABSOLUTE AUTO 0.83 K/mm3 (0.16-1.47); MONOCYTES PERCENT AUTO 13 % (4-13); Mean Corpuscular HGB 31.2 pg (26.0-34.0); Mean Corpuscular Volume 101 fL (80-100); Mean Platelet Volume 11.7 fL (9.1-12.4); NEUTROPHILS ABSOLUTE AUTO 4.83 K/mm3 (1.96-9.15); NEUTROPHILS PERCENT AUTO 75 % (41-73); Platelet Count 160 K/mm3 (150-400); RDW Coefficient Variation 16.5 % (11.7-14.2); RDW Standard Deviation 59.9 fL (35.1-46.3); White Blood Cell Count 6.44 K/mm3 (4.00-11.30)
--- NOTE | 2021-10-14 04:01 | NUR ---
PT IS A&OX4, SBA W/ FWW AND IS ABLE TO MAKE NEEDS KNOWN. BP HAS BEEN SOFT THIS SHIFT, SBP 80-85 THROUGH THE NIGHT. MOST CURRENT HGB IS 7.8. PT UP TO THE BATHROOM SEVERAL TIMES, NO BM THIS SHIFT BUT DID HAVE TWO SOLID FORMED BMS YESTERDAY. PAIN NOT WELL CONTROLLED THIS SHIFT, PT COMPLAINED OF PAIN SEVERAL TIMES THIS NIGHT. PT DOES CALL APPROPRIATELY. WILL CONTINUE TO MONITOR.
--- NOTE | 2021-10-14 11:10 | NUR ---
NOTIFIED OF PT. CONSISTENT LOW BP AND METOPROLOL BEING HELD IN A.M.- INSTRUCT PT. TO NOT TAKE ELIQUIS, ALDACTONE, ENESTRO, OR METOPROL UNTIL SEEN BY DR. CONNER IN A FEW DAYS. DR. CONNER OFFICE TO CALL PATIENT FOR APPT. -INSTRUCTIONS REVIEWED WITH PATIENT AND MULTIPLE TIMES AND MEDICATION ON HOLD YELLOWED OUT WITH WORD STOP. PATIENT AND VERBALIZE UNDERSTANDING AND TO FOLLOW UP WITH DR. CONNER THIS WEEK. PATIENT BELONGNINGS PACKED AND W/C TO EXIT. TO DRIVE HOME. PATIENT DC INSTRUCTIONS WITH PATIENT.
== END 2021-10-14 10:45 | disposition home or self-care (01) | DRG 378 ==
LOC: ER 14:16 → ICUE 19:33 → ICUW 19:33 → ICUE 19:42 → SURS 10-12 14:35
PROVIDERS: Emergency Medicine; Internal Medicine; Internal Medicine Gastroenterology; ADMIT Family Medicine
PROC: 30233N1 Transfusion of Nonautologous Red Blood Cells into Peripheral Vein, Percutaneous Approach (ICD-10-PCS; principal; 2021-10-08)
PROC: 0DJ08ZZ Inspection of Upper Intestinal Tract, Via Natural or Artificial Opening Endoscopic (ICD-10-PCS; 2021-10-09)
DX: K26.4 Chronic or unspecified duodenal ulcer with hemorrhage (principal); D62 Acute posthemorrhagic anemia; I50.22 Chronic systolic (congestive) heart failure; N17.9 Acute kidney failure, unspecified; E87.1 Hypo-osmolality and hyponatremia; I48.20 Chronic atrial fibrillation, unspecified; Z20.822 Contact with and (suspected) exposure to COVID-19; G89.29 Other chronic pain; M47.812 Spondylosis without myelopathy or radiculopathy, cervical region; E03.9 Hypothyroidism, unspecified; K25.9 Gastric ulcer, unspecified as acute or chronic, without hemorrhage or perforation; K44.9 Diaphragmatic hernia without obstruction or gangrene; I11.0 Hypertensive heart disease with heart failure; E78.5 Hyperlipidemia, unspecified; R35.0 Frequency of micturition; I34.0 Nonrheumatic mitral (valve) insufficiency; I27.20 Pulmonary hypertension, unspecified; E87.6 Hypokalemia; Z79.01 Long term (current) use of anticoagulants; Z79.899 Other long term (current) drug therapy; Z88.2 Allergy status to sulfonamides; Z88.5 Allergy status to narcotic agent; Z88.8 Allergy status to other drugs, medicaments and biological substances
CPT/HCPCS: 0241U; 36415; 36430; 51701; 70450; 80048; 80053; 80069; 81001; 82272; 83735; 84443; 85014; 85018; 85025; 85027; 86850; 86900; 86901; 86923; 87086; 87338; 93005; 93010; 96365; 96375; 96376; 97110; 97129; 97130; 97162; 97165; 97535; 99285-25; A9270; C1751; C9113; J0171; J0696; J1170; J1430; J2250; J2270; J2405; J2704; J3010; J3475; J3480; J7030; J7050; P9016

== ENCOUNTER → 2021-12-25 | Outpatient (CLI) | payer OTHER ==
[~2021-12-25] MED LIST changes: -ELIQUIS2.5 MG PO; +ELIQUIS5 M3 PO; +ENTRESTO 97 MG1 EACH PO
== END | disposition home or self-care (01) ==
LOC: LAB 16:07 → LAB SHORT 16:07
DX: N39.0 Urinary tract infection, site not specified (principal)
CPT/HCPCS: 87077; 87086; 87186

== ENCOUNTER 2022-01-28 17:39 | Inpatient (IN) | payer OTHER ==
[~2022-01-28] VITALS: Ht 157.5 cm; Wt 57.6 kg
[~2022-01-28 17:39] MED LIST changes: +ELIQUIS2.5 MG PO; -ELIQUIS5 M3 PO
[2022-01-28 18:40] LABS: Albumin, Blood 3.5 g/dL (3.4-5.0); Albumin/Globulin Ratio 1.6 (0.8-1.8); Bilirubin, Total 0.8 mg/dL (0.1-1.0); Bun/Creatinine Ratio 48.4 (12.0-20.0); Creatinine, Blood 0.76 mg/dL (0.40-1.00); Globulin, Blood 2.2 g/dL (2.2-4.0); Total Protein, Blood 5.7 g/dL (6.4-8.2)
[2022-01-28 18:41] LABS: BASOPHILS ABSOLUTE AUTO 0.01 K/mm3 (0.00-0.23); BASOPHILS PERCENT AUTO 0 % (0-2); EOSINOPHILS PERCENT AUTO 0 % (0-6); Hematocrit 27.1 % (33.0-51.0); Hemoglobin 8.3 g/dL (11.5-16.0); IMMATURE GRAN ABSOLUTE AUTO 0.07 K/mm3 (0.00-0.10); IMMATURE GRAN PERCENT AUTO 1 % (0-1); LYMPHOCYTES ABSOLUTE AUTO 0.32 K/mm3 (0.84-5.20); LYMPHOCYTES PERCENT AUTO 5 % (21-46); MONOCYTES ABSOLUTE AUTO 0.33 K/mm3 (0.16-1.47); MONOCYTES PERCENT AUTO 5 % (4-13); Mean Corpuscular HGB 30.9 pg (26.0-34.0); Mean Corpuscular HGB Conc 30.6 g/dL (31.5-36.5); Mean Corpuscular Volume 101 fL (80-100); Mean Platelet Volume 12.4 fL (9.1-12.4); NEUTROPHILS ABSOLUTE AUTO 6.23 K/mm3 (1.96-9.15); NEUTROPHILS PERCENT AUTO 90 % (41-73); NRBC ABSOLUTE 0.61 K/mm3 (0.00-0.02); NRBC Auto 8.8 /100 WBC (0.0-0.2); Platelet Count 74 K/mm3 (150-400); RDW Coefficient Variation 15.7 % (11.7-14.2); RDW Standard Deviation 57.1 fL (35.1-46.3); Red Blood Cell Count 2.69 M/mm3 (3.80-5.20); White Blood Cell Count 6.96 K/mm3 (4.00-11.30)
[2022-01-28 18:56] LABS: Source, Urine Clean Catch
[2022-01-28 19:05] LABS: Appearance, Urine Hazy (Clear); Bilirubin, Urine Neg (Neg); Blood, Urine Neg (Neg); Color, Urine Yellow (P-Yellow); Glucose Qualitative, Urine Neg (Neg); Ketones, Urine Neg (Neg); Leukocyte Esterase, Urine Neg (Neg); Nitrite, Urine Neg (Neg); Protein, Urine 3+ (Neg); Urobilinogen, Urine NORM (Normal)
[2022-01-28 19:21] LABS: Bacteria Mod /hpf; Red Blood Cells, Urine 0-2 /hpf (0-2); Squamous Epithelial Cells Rare /hpf (Few); White Blood Cells, Urine 0-2 /hpf (0-5)
[2022-01-28 19:22] LABS: Amorphous Light (0-Heavy); Hyaline Casts 25-50 /lpf (0-2)
[2022-01-28 19:23] LABS: Mucus Light (0-Heavy)
--- NOTE | 2022-01-28 21:27 | NUR ---
transfer report from NUCLEAR PLANT CONSTRUCTION WORKER aZc on 87 year old Female being admitted with acute on chronic heart failure with obs status ordered tele monitoring. Mccormack cath was placed in ER for retention. Urine C & S Pending. Full code status. Await admission
[2022-01-29 05:00] LABS: BASOPHILS PERCENT AUTO 0 % (0-2); EOSINOPHILS ABSOLUTE AUTO 0.01 K/mm3 (0.00-0.68); EOSINOPHILS PERCENT AUTO 0 % (0-6); Hematocrit 26.7 % (33.0-51.0); Hemoglobin 8.1 g/dL (11.5-16.0); IMMATURE GRAN ABSOLUTE AUTO 0.06 K/mm3 (0.00-0.10); IMMATURE GRAN PERCENT AUTO 1 % (0-1); LYMPHOCYTES ABSOLUTE AUTO 0.33 K/mm3 (0.84-5.20); LYMPHOCYTES PERCENT AUTO 6 % (21-46); MONOCYTES ABSOLUTE AUTO 0.35 K/mm3 (0.16-1.47); MONOCYTES PERCENT AUTO 6 % (4-13); Mean Corpuscular HGB 30.9 pg (26.0-34.0); Mean Corpuscular HGB Conc 30.3 g/dL (31.5-36.5); Mean Corpuscular Volume 102 fL (80-100); Mean Platelet Volume 12.4 fL (9.1-12.4); NEUTROPHILS ABSOLUTE AUTO 5.22 K/mm3 (1.96-9.15); NEUTROPHILS PERCENT AUTO 87 % (41-73); NRBC ABSOLUTE 0.25 K/mm3 (0.00-0.02); NRBC Auto 4.2 /100 WBC (0.0-0.2); Platelet Count 57 K/mm3 (150-400); RDW Coefficient Variation 15.6 % (11.7-14.2); RDW Standard Deviation 57.8 fL (35.1-46.3); Red Blood Cell Count 2.62 M/mm3 (3.80-5.20); White Blood Cell Count 5.97 K/mm3 (4.00-11.30)
[2022-01-29 05:24] LABS: Albumin, Blood 3.5 g/dL (3.4-5.0); Albumin/Globulin Ratio 1.5 (0.8-1.8); Bilirubin, Total 0.7 mg/dL (0.1-1.0); Bun/Creatinine Ratio 41.5 (12.0-20.0); Calcium, Blood 8.8 mg/dL (8.5-10.1); Creatinine, Blood 0.84 mg/dL (0.40-1.00); Globulin, Blood 2.4 g/dL (2.2-4.0); Potassium, Blood 3.8 mmol/L (3.5-5.5); Total Protein, Blood 5.9 g/dL (6.4-8.2)
--- NOTE | 2022-01-29 06:43 | NUR ---
87 year old Female admitted with acute on chronic heart failure & had a smith cath placed in ER for retention. UA positive C & S pending. Recently treated for Ecoli UTI. PT had multiple falls at home extreme weakness. She said she had to call EMS to get her off the toilet. PTT is very irritable compains she is not getting any attention. PT unable to verify home med list, refused eliquis for afib. Medicated for pain several times with ultran 50 mg x 1 with 650 mg tylenol. PRessure sores present of bilat buttock
--- NOTE | 2022-01-29 18:02 | NUR ---
SHIFT SUMMARY PT ALERT AND ORIENTED, FOLLOWS COMMANDS. AFIB ON MONITOR. PT C/O GENERALIZED PAIN, STATES CURRENT MEDS NOT WORKING. NOTIFIED MD, PRN MEDICATIONS CHANGED. ZHANG IN PLACE, DRAINING TO GRAVITY. PENDING ECHO AND US ABD. WILL CONTINUE TO MONITOR.
--- NOTE | 2022-01-30 04:25 | NUR ---
SHIFT SUMMARY PT COMPLAINING OF PAIN, GENERALIZED THROUGHOUT WITH IT BEING MOST SEVERE IN COCCYX. PT HAS PRESSURE SORE ON COCCYX. MEPILEX REMAINED INTACT. MEDICATED W/ 1 TAB NORCO. PT APPEARED TO SLEEP WELL AFTER. PT REFUSING TO REPOSITION TO ANY OTHER SIDE THAN ON HER LEFT SIDE. APPEARS INTERMITTENTLY MILDLY CONFUSED. BEAVER. REFUSED BLOOD THINNER THIS EVENING. ZHANG CATHETER PATENT AND DRAINING. URINE LIGHT YELLOW. COMPLIANT WITH FLUID RESTRICTION. VITAL SIGNS STABLE. NO ACUTE CHANGES THIS EVENING. WILL CONTINUE TO MONITOR.
[2022-01-30 06:44] LABS: BASOPHILS PERCENT AUTO 0 % (0-2); EOSINOPHILS ABSOLUTE AUTO 0.02 K/mm3 (0.00-0.68); EOSINOPHILS PERCENT AUTO 0 % (0-6); Hemoglobin 8.7 g/dL (11.5-16.0); IMMATURE GRAN ABSOLUTE AUTO 0.04 K/mm3 (0.00-0.10); IMMATURE GRAN PERCENT AUTO 1 % (0-1); LYMPHOCYTES PERCENT AUTO 9 % (21-46); MONOCYTES ABSOLUTE AUTO 0.44 K/mm3 (0.16-1.47); MONOCYTES PERCENT AUTO 8 % (4-13); Mean Corpuscular HGB 31.1 pg (26.0-34.0); Mean Corpuscular HGB Conc 31.1 g/dL (31.5-36.5); Mean Corpuscular Volume 100 fL (80-100); NEUTROPHILS ABSOLUTE AUTO 4.52 K/mm3 (1.96-9.15); NEUTROPHILS PERCENT AUTO 82 % (41-73); NRBC ABSOLUTE 0.26 K/mm3 (0.00-0.02); NRBC Auto 4.7 /100 WBC (0.0-0.2); Platelet Count 57 K/mm3 (150-400); RDW Coefficient Variation 15.9 % (11.7-14.2); RDW Standard Deviation 58.2 fL (35.1-46.3); White Blood Cell Count 5.52 K/mm3 (4.00-11.30)
[2022-01-30 07:32] LABS: Magnesium, Blood 2.1 mg/dL (1.6-2.4); Percent Saturation 5.6 % (15.0-50.0)
[2022-01-30 08:11] LABS: Albumin, Blood 3.5 g/dL (3.4-5.0); Albumin/Globulin Ratio 1.6 (0.8-1.8); Bilirubin, Total 0.9 mg/dL (0.1-1.0); Calcium, Blood 8.5 mg/dL (8.5-10.1); Creatinine, Blood 0.98 mg/dL (0.40-1.00); Globulin, Blood 2.2 g/dL (2.2-4.0); Phosphorus, Blood 2.6 mg/dL (2.5-4.9); Potassium, Blood 3.9 mmol/L (3.5-5.5); Total Protein, Blood 5.7 g/dL (6.4-8.2)
--- NOTE | 2022-01-30 08:26 | NUR ---
SPOKE WITH DR. BLANCO THIS AM REGARDING THE PATIENTS BP AND MEDICATION. STATED TO HOLD LASIX AND METROPROLOL FOR TIME BEING. PATIENT ALSO REFUSING HER ELIQUIS BECAUSE OF STATED HISTORY OF GI BLEED. DR. CEE WILL ASLO ADDRESS THIS WHEN HE COMES TO SEE EHR. PATIENT IS ANXIOUS AND STATES SHE FEELS LIKE SHE IS DYING. PATIENT TOOK NARCO AT 545AM AND IS STATING PAIN 10/10 AT 0800. PAIN IS GENERALIZED, CHRONIC ARTHRITIC.
--- NOTE | 2022-01-30 17:47 | NUR ---
PATIENT HAD RESUCITATE ORDER CHANGED TO DNR THIS SHIFT. SHE HAS MULTIPLE COMPLAINTS AND IS JUST NOT COMFORTABLE EVEN AFTER SEVERAL APPTEMPTS TO MANAGE COMFORT/CONCERN. THIS AFTERNOON THE PROVIDER ORDERED IV FERRIC GLUCONATE. THE FIRST OF THREE BAGS IS INFUSED. SHE COMPLAINS ABOUT PAIN, EVEN AFTER PAIN MEDICATION GIVEN. HOWEVER SHE SLEEPS AFTERWARD. SHE DOES NOT LIKE BEING WOKE. SHE WANTS HER NEEDS MET, BUT GETS IRRITATED WHEN WE REPOSITION HER, GIVE HER MEDICATION, OR COME IN HER ROOM. SAID THAT HER MOOD IS NOT USUALLY LIKE THIS. PATIENT RECEIVES IV LASIX. NURSE CAN HOLD IF SBP IS < 100. THE PROVIDER STATED THAT THE PATIENTS HEART IS BEING COMPROMISED BY THE EXTRA FLUID, SO SHE DOES NEED THE LASIX. ELIQUIS IS ALSO TO BE GIVEN. THE PATIENT STATED THAT SHE CAN NOT TAKE IT DUE TO HISTORY OF GI BLEED, BUT THAT WAS LAST OCTOBER SO DR. CEE, AFTER LOOKING INTO HER COMPLAINT, STATED WE SHOULD ADMINISTER THAT MEDICATION.
--- NOTE | 2022-01-31 04:08 | NUR ---
SHIFT SUMMARY PATIENT HAD NO ACUTE CHANGES OBSERVED. AXOX 2 WITH CONFUSION. REFUSED ELIQUIS REPORTING HX OF GI BLEED. GENERAL PAIN REPORTED X TWO AND NORCO AND TYLENOL ALTERNATED. PATIENT REPORTED PAIN MEDICATION NOT EFFECTIVE. PATIENT ABLE TO GO BACK TO SLEEP. DENIES SOB AND N/V. VSS/AFEBRILE. PIV REMAINS INTACT. FLUID RESTRICTION 1,500 mL. TELE MONITOR A FIB 80'S. CALL LIGHT IN REACH. BED IN LOWEST POSITION. WILL CONTINUE TO MONITOR UNTIL DAY SHIFT NURSE ASSUMES CARE.
[2022-01-31 06:02] LABS: BASOPHILS PERCENT AUTO 0 % (0-2); EOSINOPHILS ABSOLUTE AUTO 0.02 K/mm3 (0.00-0.68); EOSINOPHILS PERCENT AUTO 0 % (0-6); Hematocrit 27.5 % (33.0-51.0); Hemoglobin 8.7 g/dL (11.5-16.0); IMMATURE GRAN ABSOLUTE AUTO 0.05 K/mm3 (0.00-0.10); IMMATURE GRAN PERCENT AUTO 1 % (0-1); LYMPHOCYTES ABSOLUTE AUTO 0.64 K/mm3 (0.84-5.20); LYMPHOCYTES PERCENT AUTO 10 % (21-46); MONOCYTES PERCENT AUTO 8 % (4-13); Mean Corpuscular HGB 31.6 pg (26.0-34.0); Mean Corpuscular HGB Conc 31.6 g/dL (31.5-36.5); Mean Corpuscular Volume 100 fL (80-100); NEUTROPHILS ABSOLUTE AUTO 5.32 K/mm3 (1.96-9.15); NEUTROPHILS PERCENT AUTO 81 % (41-73); NRBC ABSOLUTE 0.34 K/mm3 (0.00-0.02); NRBC Auto 5.2 /100 WBC (0.0-0.2); Platelet Count 58 K/mm3 (150-400); RDW Coefficient Variation 15.7 % (11.7-14.2); RDW Standard Deviation 56.7 fL (35.1-46.3); Red Blood Cell Count 2.75 M/mm3 (3.80-5.20); White Blood Cell Count 6.53 K/mm3 (4.00-11.30)
[2022-01-31 06:18] LABS: Mean Platelet Volume 13.5 fL (9.1-12.4)
[2022-01-31 06:22] LABS: Albumin, Blood 3.4 g/dL (3.4-5.0); Albumin/Globulin Ratio 1.5 (0.8-1.8); Bilirubin, Total 0.8 mg/dL (0.1-1.0); Bun/Creatinine Ratio 46.1 (12.0-20.0); Calcium, Blood 8.7 mg/dL (8.5-10.1); Creatinine, Blood 0.98 mg/dL (0.40-1.00); Globulin, Blood 2.3 g/dL (2.2-4.0); Potassium, Blood 3.8 mmol/L (3.5-5.5); Total Protein, Blood 5.7 g/dL (6.4-8.2)
--- NOTE | 2022-01-31 17:09 | NUR ---
Spiritual Care Coonsult: order by Dr. Sainz Spiritual Care attempted - Pt. declined spiritual care @ 5:05pm, Spouse was present.
--- NOTE | 2022-01-31 18:08 | NUR ---
SHIFT SUMMARY PT ALERT, VERY ANGRY/FRUSTRATED THROUGHOUT DAY. C/O GENERALIZED PAIN, PRN MEDICATIONS ADMINISTERED. ZHANG IN PLACE, DRAINING TO GRAVITY. WOUND TO BUTTOCKS DRESSED WITH NEW MEPILEX. CONTINUING IV DIURESIS WITH LASIX. WILL CONTINUE TO MONITOR
--- NOTE | 2022-02-01 02:02 | NUR ---
PATIENT REPORTED SOB AND PLACED ON 2L O2 NC. PULLED O2 OFF SHORT TIME LATER AND REPORTED SOB. PATIENT REMINDED SHE PULLED O2 OFF AND REPORTS SHE DOES NOT WANT IT ON AT THIS TIME UNTIL SHE NEEDS IT. PATIENT CONFUSED AT TIMES.
--- NOTE | 2022-02-01 04:18 | NUR ---
SHIFT SUMMARY PATIENT CONTINUES TO BE CONFUSED. AXOX 2 AND BEDREST. REPORTED SOB AND PLACED ON 2L O2 NC. PATIENT SOON PULLED O2 OFF AND REPORTED SHE WAS SOB. REMINDED TO KEEP HER O2 ON. FLUID RESTRICTION 1,500 mL. ZHANG PATENT AND DRAINING TO GRAVITY. TELE MONITOR AFIB 74. SCHEDULE ULTRAM 50 MG Q6 FOR GENERAL PAIN. PIV REMAINS INTACT. CALL LIGHT IN REACH. BED IN LOWEST POSITION. WILL CONTINUE TO MONITOR UNTIL DAY SHIFT NURSE ASSUMES CARE.
[2022-02-01 06:01] LABS: BASOPHILS PERCENT AUTO 0 % (0-2); EOSINOPHILS ABSOLUTE AUTO 0.01 K/mm3 (0.00-0.68); EOSINOPHILS PERCENT AUTO 0 % (0-6); Hematocrit 27.5 % (33.0-51.0); Hemoglobin 8.6 g/dL (11.5-16.0); IMMATURE GRAN ABSOLUTE AUTO 0.05 K/mm3 (0.00-0.10); IMMATURE GRAN PERCENT AUTO 1 % (0-1); LYMPHOCYTES ABSOLUTE AUTO 0.36 K/mm3 (0.84-5.20); LYMPHOCYTES PERCENT AUTO 5 % (21-46); MONOCYTES ABSOLUTE AUTO 0.52 K/mm3 (0.16-1.47); MONOCYTES PERCENT AUTO 7 % (4-13); Mean Corpuscular HGB 31.5 pg (26.0-34.0); Mean Corpuscular HGB Conc 31.3 g/dL (31.5-36.5); Mean Corpuscular Volume 101 fL (80-100); NEUTROPHILS ABSOLUTE AUTO 6.79 K/mm3 (1.96-9.15); NEUTROPHILS PERCENT AUTO 88 % (41-73); NRBC ABSOLUTE 0.26 K/mm3 (0.00-0.02); NRBC Auto 3.4 /100 WBC (0.0-0.2); Platelet Count 61 K/mm3 (150-400); RDW Coefficient Variation 15.9 % (11.7-14.2); RDW Standard Deviation 58.1 fL (35.1-46.3); Red Blood Cell Count 2.73 M/mm3 (3.80-5.20); White Blood Cell Count 7.73 K/mm3 (4.00-11.30)
[2022-02-01 06:10] LABS: Mean Platelet Volume 13.4 fL (9.1-12.4)
[2022-02-01 06:15] LABS: Albumin, Blood 3.4 g/dL (3.4-5.0); Albumin/Globulin Ratio 1.5 (0.8-1.8); Bilirubin, Total 0.8 mg/dL (0.1-1.0); Calcium, Blood 8.6 mg/dL (8.5-10.1); Creatinine, Blood 0.98 mg/dL (0.40-1.00); Globulin, Blood 2.2 g/dL (2.2-4.0); Potassium, Blood 3.8 mmol/L (3.5-5.5); Total Protein, Blood 5.6 g/dL (6.4-8.2)
--- NOTE | 2022-02-01 11:56 | NUR ---
Spiritual Care for Pts. () Though Pt. had denied Spiritual Care last evening, I made a connection with her spouse who was sitting in a chair outside her room. Spouse verbalized apology for the Pts. refusal of spiritual care, but opened a conversation. Through theraputic listen was able to devlop rapport and facilitate a Life review. Many years of family loss have impacted the pt. and her family. Spouse displayed evidence of relief and support. I gave my name to the spouse who shook my hand and verbalized gratitude for the spiritual care visit.
--- NOTE | 2022-02-01 17:51 | NUR ---
SHIFT SUMMARY PT VERY AGITATED/FRUSTRATED TODAY. PAIN MEDICATIONS CHANGED BY MD IN ATTEMPT TO HELP PT GET OUT OF BED AND MOVING WITH PT. PT/OT REORDERED TO SEE PATIENT, REFUSED TODAY BUT SAID SHE WOULD PARTICIPATE TOMORROW. PRN PAIN MEDICATIONS ADMINISTERED. DIURETICS TRANSITIONED TO PO. WILL CONTINUE TO MONITOR.
--- NOTE | 2022-02-02 01:44 | NUR ---
BP WAS 87/47 EARLIER WHEN VS TAKEN, ASYMPTOMATIC. LEGS ELEVATED, AWAITING BP RE CHECK. CALL LIGHT IN REACH
--- NOTE | 2022-02-02 03:03 | NUR ---
BP RECHECKED: 111/66. VOICED FEELINGS OF NEEDING TO VOID. ZHANG DRAINING WELL. CLEAR JAVON. BLADDER SCANNED - "0" RESULTS IN BLADDER. CALL LIGHT IN REACH
--- NOTE | 2022-02-02 03:14 | NUR ---
CAR INSPECTOR SUMMARY AWAKE AT INTERVALS THIS SHIFT AFTER HS. ZHANG DRAINING CLEAR JAVON. VOICED WAS FEELING THE NEED TO VOID EVEN WITH THE ZHANG IN, BLADDER SCANNED AND WAS EMPTY. BP WAS LOW (SEE DOC FLOW SHEETS). LEGS ELEVATED AND BP TRENDED UP TO WNL. ASYMPTOMATIC. TELE CONTINUES A FIB. CALL LIGHT IN REACH.
[2022-02-02] MEDS ORDERED: PANTOPRAZOLE SO40 M2 PO (05:45)
[2022-02-02] MEDS ORDERED: TERB250 PO (05:45)
--- NOTE | 2022-02-02 19:28 | NUR ---
SHIFT SUMMARY SACRAL WOUND COVERED WITH MEPILEX. JORDYN WORKED WITH PT TODAY, AND SAT IN THE CHAIR FOR ONE HOUR. SHE IS RESISTANT TO WORKING WITH PT. HARD OF HEARING. TELE REPORTED AFIB IN THE 80'S - 90'S WITH A BBB. FLUID RESTRICTION, ALTHOUGH PT SHOWS FORGETFULNESS AND DEFENSIVENESS BY ARGUING WITH STAFF ABOUT FLUID RESTRICTION. PT ARGUES WITH STAFF ABOUT SITTING UP FOR MEALS. ONE PERSON SBA TO COMMODE.
--- NOTE | 2022-02-02 23:58 | NUR ---
INTERMITTENT CALLING OUT, MULTIPLE USES OF CALL LIGHT AND THEN WOULD GET IRRITATED EASILY WITH STAFF WHEN THEY CAME IN TO DO WHAT SHE ASKED FOR, STATING SHE "CHANGED" HER MIND. STATED SHE WANTED TO GO TO SLEEP. NOTIFIED AND SEROQUEL ORDERED AND ADMINISTERED. CALL LIGHT IN REACH
--- NOTE | 2022-02-03 03:34 | NUR ---
BOXING INSPECTOR SUMMARY AWAKE AND EASILY IRRITATED FIRST PART OF THE SHIFT. CALLED SAFF TO ROOM AND REQUESTED REPOSITOINING AND BECAME ANGRY AND IRRITATED WHEN STAFF DID SHE ASKED, CHANGING HER MIND IN THE MIDDLE OF STAFF ACTIONS. RECEIVED ANALGESICS ORDERED AND LATER IN THE SHIFT, VOICED WANTED TO SLEEP AND WANTED SLEEP MED. CALL PLACED TO MD BIODIESEL PRODUCTION TECHNICIAN AND SEROQUEL ORDERED X 1. MED GIVEN AND IS CURRENTLY RESTING QUIETLY WITH CALL LIGHT IN REACH. VICENTE VINCENT. MED TELE A-FIB. WILL CONTINUE TO MONITOR
--- NOTE | 2022-02-03 05:33 | NUR ---
television technician reported 9 beats of V-tach, then it went "back to normal". On assessment of pt, pt was asymptomatic other than concerned affect with the statement "I lost my clothes, Where are my clothes?..." Reassurance given. Call light in reach
[2022-02-03 05:58] LABS: BASOPHILS ABSOLUTE AUTO 0.01 K/mm3 (0.00-0.23); BASOPHILS PERCENT AUTO 0 % (0-2); EOSINOPHILS ABSOLUTE AUTO 0.03 K/mm3 (0.00-0.68); EOSINOPHILS PERCENT AUTO 0 % (0-6); Hematocrit 30.7 % (33.0-51.0); Hemoglobin 9.5 g/dL (11.5-16.0); IMMATURE GRAN ABSOLUTE AUTO 0.03 K/mm3 (0.00-0.10); IMMATURE GRAN PERCENT AUTO 0 % (0-1); LYMPHOCYTES ABSOLUTE AUTO 0.26 K/mm3 (0.84-5.20); LYMPHOCYTES PERCENT AUTO 4 % (21-46); MONOCYTES ABSOLUTE AUTO 0.38 K/mm3 (0.16-1.47); MONOCYTES PERCENT AUTO 5 % (4-13); Mean Corpuscular HGB 31.3 pg (26.0-34.0); Mean Corpuscular HGB Conc 30.9 g/dL (31.5-36.5); Mean Corpuscular Volume 101 fL (80-100); NEUTROPHILS ABSOLUTE AUTO 6.48 K/mm3 (1.96-9.15); NEUTROPHILS PERCENT AUTO 90 % (41-73); NRBC ABSOLUTE 0.03 K/mm3 (0.00-0.02); NRBC Auto 0.4 /100 WBC (0.0-0.2); Platelet Count 55 K/mm3 (150-400); RDW Coefficient Variation 16.6 % (11.7-14.2); RDW Standard Deviation 58.3 fL (35.1-46.3); Red Blood Cell Count 3.04 M/mm3 (3.80-5.20); White Blood Cell Count 7.19 K/mm3 (4.00-11.30)
[2022-02-03 06:08] LABS: Mean Platelet Volume 13.2 fL (9.1-12.4)
[2022-02-03 06:14] LABS: Albumin, Blood 3.6 g/dL (3.4-5.0); Albumin/Globulin Ratio 1.4 (0.8-1.8); Bun/Creatinine Ratio 38.8 (12.0-20.0); Creatinine, Blood 0.93 mg/dL (0.40-1.00); Globulin, Blood 2.6 g/dL (2.2-4.0); Magnesium, Blood 1.8 mg/dL (1.6-2.4); Phosphorus, Blood 2.3 mg/dL (2.5-4.9); Potassium, Blood 3.3 mmol/L (3.5-5.5); Total Protein, Blood 6.2 g/dL (6.4-8.2)
--- NOTE | 2022-02-03 09:30 | NUR ---
PT REFUSING MEDICATIONS - RN ATTEMPTED TO ADMINISTER MORNING MEDICATIONS. PT IS SITTING UP IN BED, EATING BREAKFAST. PT STATES, "IF THOSE ARE PILLS, I'M NOT TAKING THEM. CAN'T YOU SEE I'M EATING, LEAVE ME ALONE." RN APPLIED FENTANYL PATCH. WILL GIVE SPACE AND RE-APPROACH.
--- NOTE | 2022-02-03 09:58 | NUR ---
AGAIN ATTEMPTED TO ADMINISTER MEDICATIONS, PT NOW LYING DOWN IN BED. PT REFUSES ALL MEDICATION, STATES "I DON'T CARE WHAT HAPPENS AT THIS POINT."
--- NOTE | 2022-02-03 12:10 | NUR ---
PT PRESSED CALL BUTTON AND TOLD RN THAT HER BACK WAS IN PAIN. RN OFFERED TO REPOSITION PT, PT STATED, "i DON'T WANT TO BE TOUCH!" RN OFFERED PRN PAIN MEDICATION, PT YELLED, "I DON'T WANT PILLS! I DON'T WANT TO TALK ABOUT IT!" RN ATTEMPTING TO DE-ESCALATE PT BY UNINTERRUPTED REST AND DOOR CLOSED TO LOWER OUTSIDE STIMULI. PT'S CALL LIGHT WITHIN REACH.
--- NOTE | 2022-02-03 12:15 | NUR ---
REPOSITIONED PT, PROVIDED PERICARE. ENCOURAGED PT TO MOBILIZE DUE TO CONGESTION, PT CONTINUES TO DECLINE ATTEMPTS FOR PT OR ASSISTANCE OUT OF BED.
--- NOTE | 2022-02-03 14:29 | NUR ---
PHONE CALL PLACED TO DR. BRENNAN - PT HAS LOOSE, CONGESTED COUGH. DISCUSSED MUCINEX TO LOOSEN MUCUS.
--- NOTE | 2022-02-03 18:20 | NUR ---
SHIFT SUMMARY PT REFUSED ALMOST ALL CARE TODAY. RN AND DR. BRENNAN SPOKE TO SON GRACE ON TELEPHONE. GRACE STATED THAT HIS MOM TOLD HIM SHE WAS NOT RECEIVING PAIN MEDICATION. PT HAS RECEIVED PRN PAIN MEDICATION, BUT AT TIMES HAS BEEN REFUSING HER PO PILLS. SHE HAS NOT TAKEN ALL OF HER SCHEDULED MEDICATIONS, INCLUDING HEART/BLOOD PRESSURE MEDICATIONS. TELEMETRY HAS NOT REPORTED ANY RUNS OF V-TACH THIS SHIFT. PT HAS REMAINED AFIB IN THE 70'S, OCCASIONAL TACH UP TO 104. ROOM AIR. PT STATES SHE WANTS TO BE LEFT ALONE. DR. BRENNAN ORDERED CONSULT WITH DR. JOSUE.
--- NOTE | 2022-02-03 19:38 | NUR ---
DUE TO LATE ADMINISTRATION OF BUMEX, RN ADVISED ENGINE INSPECTOR TO ADMINISTER BUMEX LATER TO MAINTAIN DIURETIC SCHEDULE. PT HAS BEEN REFUSING MEDICATIONS.
--- NOTE | 2022-02-04 03:26 | NUR ---
TILE MECHANIC SUMMARY HAS BEEN RESTING QUIETLY WITH FEW INTERRUPTIONS AFTER TAKING HS MEDS, AWAKE FOR REPOSITIONS AND ANALGESICS - SEE MAR FOR DETAILS. CALL LIGHT IN REACH. APPEARS LESS AGITATED THAN 24 HR AGO IN HE INTERACTIONS WITH STAFF. WILL CONTINUE TO MONITOR.
[2022-02-04 05:26] LABS: BASOPHILS ABSOLUTE AUTO 0.01 K/mm3 (0.00-0.23); BASOPHILS PERCENT AUTO 0 % (0-2); EOSINOPHILS ABSOLUTE AUTO 0.08 K/mm3 (0.00-0.68); EOSINOPHILS PERCENT AUTO 1 % (0-6); Hematocrit 27.9 % (33.0-51.0); Hemoglobin 8.7 g/dL (11.5-16.0); IMMATURE GRAN ABSOLUTE AUTO 0.07 K/mm3 (0.00-0.10); IMMATURE GRAN PERCENT AUTO 1 % (0-1); LYMPHOCYTES ABSOLUTE AUTO 0.25 K/mm3 (0.84-5.20); LYMPHOCYTES PERCENT AUTO 4 % (21-46); MONOCYTES ABSOLUTE AUTO 0.67 K/mm3 (0.16-1.47); MONOCYTES PERCENT AUTO 10 % (4-13); Mean Corpuscular HGB 31.8 pg (26.0-34.0); Mean Corpuscular HGB Conc 31.2 g/dL (31.5-36.5); Mean Corpuscular Volume 102 fL (80-100); Mean Platelet Volume 12.8 fL (9.1-12.4); NEUTROPHILS ABSOLUTE AUTO 5.59 K/mm3 (1.96-9.15); NEUTROPHILS PERCENT AUTO 84 % (41-73); NRBC ABSOLUTE 0.02 K/mm3 (0.00-0.02); NRBC Auto 0.3 /100 WBC (0.0-0.2); RDW Standard Deviation 59.4 fL (35.1-46.3); Red Blood Cell Count 2.74 M/mm3 (3.80-5.20); White Blood Cell Count 6.67 K/mm3 (4.00-11.30)
[2022-02-04 05:28] LABS: Platelet Count 53 K/mm3 (150-400)
[2022-02-04 05:51] LABS: Albumin, Blood 3.2 g/dL (3.4-5.0); Albumin/Globulin Ratio 1.4 (0.8-1.8); Bilirubin, Total 0.9 mg/dL (0.1-1.0); Bun/Creatinine Ratio 46.2 (12.0-20.0); Calcium, Blood 8.4 mg/dL (8.5-10.1); Creatinine, Blood 0.74 mg/dL (0.40-1.00); Globulin, Blood 2.3 g/dL (2.2-4.0); Magnesium, Blood 1.8 mg/dL (1.6-2.4); Phosphorus, Blood 2.1 mg/dL (2.5-4.9); Potassium, Blood 3.4 mmol/L (3.5-5.5); Total Protein, Blood 5.5 g/dL (6.4-8.2)
--- NOTE | 2022-02-04 15:18 | NUR ---
SHIFT SUMMARY PT AWAKE AT START OF SHIFT. VERY IRRITABLE AND PER REPORT REFUSING CARE AND MEDICATIONS. PT C/O BLADDER SPASMS; STAT LOCK ADJUSTED. PT REPORTED IMPROVEMENT. DISCUSSED WITH DR BRENNAN; VICENTE TO BE D/C'D FOR NOW. PT UP TO BSC FOR EX LRG BM; WEAK BUT ABLE TO TX SELF WITH 1P SBA. PT UP IN RM WITH P/T TODAY WELL. REFUSED TO WORK WITH O/T THOUGH. PAIN MEDIACATIONS CHANGED AND INCREASED; SEE EMAR. PT REPORTED MEDICATIONS IMPROVED PAIN LEVEL. TO RM THIS AFTERNOON TO VISIT. DR JOSUE IN TO SEE PT WHILE IN . MEDS ADJUSTED. COG EVAL TO BE DONE AGAIN TOMORROW. WILL CONTINUE TO MONITOR. CALL LT IN REACH.
--- NOTE | 2022-02-04 17:28 | NUR ---
PT AWAKE WHEN ENTERING FOR PM MEDS. THIS RN ASKED PT IF SHE WOULD LIKE TO TAKE A SHOWER TODAY, SINCE SHE WAS AWAKE AND HAD BEEN ABLE TO GET UP TO BSC EARLIER TODAY WELL WALK WITH P/T. PT BECAME VERY ANGRY AND RUDE THAT SOMEONE WOULD BOTHER HER WHILE IN THE HOSPITAL. PT WANTING TO REST AND NOT GET OOB. PT SEEMS TO COMPLAIN IF SHE DOESN'T GET CARE OFFERED AND ALSO COMPLAINS IF STAFF DOES OFFER. PT IS VERY DIFFICULT TO PLEASE AND VERY MEAN TO STAFF. PT'S CLOTHES ARE SOILED AND NEED TO BE CHANGED BUT PT IS REFUSING. AT BS DID NOT SAY ANYTHING. CALL LT IN REACH.
--- NOTE | 2022-02-05 05:20 | NUR ---
SHIFT SUMMARY 87 YR F ADMITTED ON 01/29/22 FOR CHRONIC HEART FAILURE. DNR. PT EXPRESSED TO ME THAT SHE COULD FEEL THAT HER BLADDER WAS FULL BUT SHE COULDN'T URINATE. SHE STATED THAT SHE NEEDED SOMEONE TO SIT W/ HER WHILE SHE WAS ON THE BSC BUT THAT NOONE HAS HAD TIME. I SAT W/ HER FOR APPROX 20 MIN AND ASKED HER TO TELL ME ABOUT HER FAMILY. SHE OPENLY SHARED AND WAS ABLE TO RELAX AND URINATE SEVERAL TIMES. SHE SPOKE OF FAMILY TRAGEDY AND THE LOSS OF TWO OF HER CHILDERN. SHE WAS VERY OPEN TO HAVING CONVERSATION AND SHE WAS VERY PLEASANT. FROM THAT POINT FORWARD SHE WAS COOPERATIVE THE REST OF THE SHIFT AND VERBALIZED HER THANKS FOR THE CARE SHE IS RECEIVING. I ASKED HER WHY SHE HAD PREVIOUSLY REFUSED CARE AND MEDS AND SHE WAS ADAMET THAT SHE HAD NOT. SHE IS OBVIOUSLY CONFUSED BUT W/ POSITIVE REDIRECTION SHE SEEMED TO DO VERY WELL.
[2022-02-05 06:00] LABS: BASOPHILS ABSOLUTE AUTO 0.01 K/mm3 (0.00-0.23); BASOPHILS PERCENT AUTO 0 % (0-2); EOSINOPHILS ABSOLUTE AUTO 0.09 K/mm3 (0.00-0.68); EOSINOPHILS PERCENT AUTO 2 % (0-6); Hematocrit 28.9 % (33.0-51.0); IMMATURE GRAN ABSOLUTE AUTO 0.04 K/mm3 (0.00-0.10); IMMATURE GRAN PERCENT AUTO 1 % (0-1); LYMPHOCYTES ABSOLUTE AUTO 0.47 K/mm3 (0.84-5.20); LYMPHOCYTES PERCENT AUTO 10 % (21-46); MONOCYTES ABSOLUTE AUTO 0.58 K/mm3 (0.16-1.47); MONOCYTES PERCENT AUTO 13 % (4-13); Mean Corpuscular HGB 31.7 pg (26.0-34.0); Mean Corpuscular HGB Conc 31.1 g/dL (31.5-36.5); Mean Corpuscular Volume 102 fL (80-100); Mean Platelet Volume 12.7 fL (9.1-12.4); NEUTROPHILS ABSOLUTE AUTO 3.39 K/mm3 (1.96-9.15); NEUTROPHILS PERCENT AUTO 74 % (41-73); Platelet Count 53 K/mm3 (150-400); RDW Coefficient Variation 17.4 % (11.7-14.2); RDW Standard Deviation 61.9 fL (35.1-46.3); Red Blood Cell Count 2.84 M/mm3 (3.80-5.20); White Blood Cell Count 4.58 K/mm3 (4.00-11.30)
[2022-02-05 06:12] LABS: Anion Gap 9 mmol/L (6-16); Blood Urea Nitrogen 38 mg/dL (8-24); Bun/Creatinine Ratio 42.3 (12.0-20.0); CO2, Blood 27 mmol/L (21-32); Calcium, Blood 8.2 mg/dL (8.5-10.1); Chloride, Blood 96 mmol/L (98-108); Glomerular Filtration Rate 63 (60-); Glucose, Blood 91 mg/dL (70-99); Phosphorus, Blood 2.1 mg/dL (2.5-4.9); Potassium, Blood 3.7 mmol/L (3.5-5.5); Sodium, Blood 132 mmol/L (136-145)
--- NOTE | 2022-02-05 16:56 | NUR ---
SHIFT SUMMARY PT VERY IRRITABLE AT START OF SHIFT TODAY. PT TOLD THE PRIEST, WHEN SHE WENT IN TO GET VS THAT SHE WANTED SOME PAIN MEDICATION. THIS RN OBTAINED MEDS AND THEN TOOK THEM IN TO BE ADMINISTERED. PT THEN REFUSED AND DID NOT WANT TO BE BOTHERED AT THAT TIME. PT COMPLAINED ABOUT BEING "CROOKED IN THE BED" AND HOW BAD THE CARE WAS AROUND HERE THAT SOMEONE WOULD LEAVE HER ON HER SIDE AND CROOKED. I THEN ATTEMPTED TO STRAIGHTEN PT AND PULL HER UP IN BED. PT THEN STARTED COMPLAINING HOW COLD SHE WAS. HEAT INCREASED AND WARM BLANKET OBTAINED AND PLACED, HOWEVER, PT THEN SNAPPED AT HOW RUDE THE CARE WAS THAT WE WOULD BOTHER HER WHILE SHE WAS TRYING TO EAT BREAKFAST. PT BECAME VERY ANGRY AND CONTINUED TO COMPLAIN ABOUT BEING BOTHERED, EVEN THOUGH THE PT HAD BEEN THE ONE REQUESTING THE MEDICATIONS. PT REFUSED HER PAIN MEDICATIONS AT THAT TIME, BECAUSE SHE WAS ANGRY AND WANTED TO COMPLAIN ABOUT BEING CROOKED AND COLD, EVEN THOUGH THOSE COMPLAINTS WERE RESOLVED. PT LATER COMPLAINED TO DR BRENNAN ABOUT NOT BEING HELPED TO BS TO VOID. PRIEST STATED THAT SHE HAD HELPED PT UP TO BSC WHILE MAKING ROUNDS DOING VS. PT COMPLAINED ABOUT BEING LEFT IN PRIVATE WHEN UP TO BSC TODAY AND WAS ANGRY YESTERDAY FOR NOT IMMEDIATELY BEING LEFT IN PRIVATE WHEN UP YESTERDAY. PT IS IMPOSSIBLE TO PLEASE AND CANNOT OR WILL NOT JUST STATE WHAT SHE WOULD LIKE FROM US, BUT INSTEAD WOULD RATHER BE MEAN AND COMPLAIN ABOUT US ASKING HOW TO PLEASE HER. PT DOES NOT SEEM TO BE IN NEAR MUCH PAIN TODAY SHE C/O YESTERDAY. PT HAS ONLY REQUESTED PAIN MEDICATION X2 TODAY AND DID NOT REALLY C/O PAIN, JUST EVERYTHING ELSE SHE COULD THINK OF AT THE MOMENT. PT C/O HAVING A COUGH TODAY AND THEREFORE REFUSED TO GET OOB TO CHAIR FOR MEALS. PT STATED THAT IT WOULD NOT BE GOOD FOR HER COUGH TO GET UP AND WANTED DR BRENNAN TO COME AND SEE HER. DR BRENNAN NOTIFIED AND UPDATED; NEW ORDERS PLACED. DR BRENNAN TO CONTACT PT'S SON TOMORROW, AFTER DR JOSUE HAS COMPLETED HIS PLAN OF CARE. PT'S SON IS UNAWARE OF THE EXTENT OF PT'S DEMENTIA. CURRENTLY AT BS, AFTER TALKING TO PANEL LAY UP WORKER AND OBTAINING SOME POSSIBLE RESOURCES AVAILABLE FOR AFTER D/C. IS SOMEWHAT AWARE OF THE DIFFICULTY IN TRYING TO CARE FOR HIS . CALL LT IN REACH.
--- NOTE | 2022-02-05 19:41 | NUR ---
PT AWAKE TONIGHT, WHEN GOING IN TO ADMINISTER PM MEDS. PT STATED THAT SHE WANTED TO GET UP TO THE CHAIR FOR DINNER. THEN STATED THAT SHE WOULD GET TO THE BSC FIRST AND THEN THE CHAIR. PT ASSISTED TO BSC TO VOID. PANTS PLACED PER PT REQUEST AND THEN PT ASSISTED UP TO CHAIR FOR DINNER. PT WAS ACTUALLY VERY PLEASANT AND CO-OP WITH CARE. PT WAS NOT IRRITABLE OR COMPLAINING ABOUT ANYTHING WHEN GETTING UP OR WHILE SITTING UP. PT ASSISTED BACK TO BED BY CAFE ASSISTANT WHEN FINISHED WITH DINNER. CALL LT IN REACH.
--- NOTE | 2022-02-05 22:46 | NUR ---
PT HAS BEEN SLEEPING SINCE BEFORE SHIFT CHANGE. PT WOKE UP YELLING ABOUT BEING IN PAIN. I CALMED PT AND WENT TO GET HER PAIN MEDS. PT IS NOW BACK ASLEEP AND WILL NOT WAKE ENOUGH TO SAFELY SWALLOW MEDICATIONS. I WILL REASSESS WHEN SHE WAKES UP AGAIN.
--- NOTE | 2022-02-05 23:18 | NUR ---
PT WOKE YELLING FOR HELP. PT STS NEEDS TO GO TO THE BATHROOM. ASKED PT IF SHE WOULD LIKE TO TAKE HER PAIN MEDS AND PT STS THAT SHE IS "NOT IN PAIN AND JUST NEED TO PEE". PT UP TO BEDSIDE COMMODE, PANTS CHANGED AND PT BACK TO BED. PT DID TAKE HER SEROQUEL.
--- NOTE | 2022-02-06 04:23 | NUR ---
SHIFT SUMMARY PT SLEPT A LOT DURING THE FIRST HOURS OF THE SHIFT. PT HAS BEEN EASILY WOKEN THE LAST FEW HOURS, NOT WANTING TO SLEEP, ACCORDING TO THE PT. PT IS PLEASANT AT TIMES, BUT IS EASILY AGITATED. PT HAS A HARD TIME REMEMBERING, STATING SHE NEEDS PAIN MEDICATION ONE MOMENT AND THEN STATING SHE HAS NO PAIN MOMENTS LATER. PT ALSO SEEMS TO REPEAT QUESTIONS THAT HAVE ALREADY BEEN ANSWERED. PT ASKED WHAT MEDICATION SHE WAS BEING GIVEN AND WHY, TO WHICH I EXPLAINED IT TO HER. WHEN HANDED THE MEDICINE CUP, SHE ASKED THE SAME QUESTION AND SEEMED TO NOT REMEMBER ASKING AND HAVING IT ANSWERED A MINUTE BEFORE. PT HAS CALL LIGHT WITHIN REACH AND HAS BEEN INSTRUCTED ON HOW TO USE IT. PT USES CALL LIGHT SOMETIMES, AND OTHER TIMES YELLS OUT.
[2022-02-06 05:16] LABS: Anion Gap 8 mmol/L (6-16); Blood Urea Nitrogen 45 mg/dL (8-24); Bun/Creatinine Ratio 43.3 (12.0-20.0); CO2, Blood 29 mmol/L (21-32); Calcium, Blood 8.4 mg/dL (8.5-10.1); Chloride, Blood 94 mmol/L (98-108); Creatinine, Blood 1.04 mg/dL (0.40-1.00); Glomerular Filtration Rate 53 (60-); Glucose, Blood 91 mg/dL (70-99); Phosphorus, Blood 2.5 mg/dL (2.5-4.9); Potassium, Blood 3.9 mmol/L (3.5-5.5); Sodium, Blood 131 mmol/L (136-145)
--- NOTE | 2022-02-06 15:45 | NUR ---
Review of hospice care and theraputic time with patients . Will update hospice team he is having significant caregiver stress and role reversal. They do not have family in the area. They have a friend who checks on their dog. Suggested he ask her if she wants a few hours of work each week staying with her while he goes to the store. Will have the social media project manager see what resources are available.
--- NOTE | 2022-02-06 18:44 | NUR ---
SHIFT SUMMARY PT IS OFTEN AGITATED AND CONFUSED. SHE REFUSED TO SHOWER OR WORK WITH PT/OT TODAY. SHE C/O PAIN OFTEN AND IS TREATED PER EMR. PT STATES THAT THE PAIN MEDICATION MAY BE MAKING HER MORE SLEEPY THAN USUAL BUT SHE IS NOT SURE. SHE OFTEN REQUESTS TO BE LEFT ALONE AND DOES NOT LIKE TO BE BOTHERED BY STAFF. PT MAY TRANSFER HOME WITH HOSPICE.
--- NOTE | 2022-02-07 04:07 | NUR ---
SHIFT SUMMARY PT SLEPT DURING FIRST HALF OF SHIFT. PT HAS BEEN DEMANDING, UNPLEASANT, AND INAPPROPRIATE THIS AM. PT RAISING HER VOICE TO AND BELITTLING STAFF MEMBERS. PT STATED SHE WAS IN PAIN AND DEMANDED PAIN MEDICATION. PT MEDICATED PER EMAR. PT REFUSES HER OTHER MEDICATIONS FOR THIS RN. PT HAS CALL LIGHT WITHIN HER REACH.
[2022-02-07 05:38] LABS: Anion Gap 9 mmol/L (6-16); Blood Urea Nitrogen 59 mg/dL (8-24); CO2, Blood 28 mmol/L (21-32); Calcium, Blood 8.5 mg/dL (8.5-10.1); Chloride, Blood 92 mmol/L (98-108); Creatinine, Blood 1.31 mg/dL (0.40-1.00); Glomerular Filtration Rate 40 (60-); Glucose, Blood 90 mg/dL (70-99); Phosphorus, Blood 3.1 mg/dL (2.5-4.9); Potassium, Blood 3.7 mmol/L (3.5-5.5); Sodium, Blood 129 mmol/L (136-145)
--- NOTE | 2022-02-07 17:15 | NUR ---
SHIFT SUMMARY: NO ACUTE EVENTS. PT REFUSED MOST OF THIS AUTHOR'S PHYSICAL ASSESSMENT. HAS CHRONIC NECK/BACK PAIN; MEDICATED PER EMAR WITH ADEQUATE RELIEF, DOES NOT FULLY UNDERSTAND PAIN SCALE BUT APPEARS COMFORTABLE AFTER BUSINESS SERVICES VICE PRESIDENT. TOLERATING PO INTAKE, DENIES NAUSEA. FINALLY AGREED TO BED BATH TODAY, BUT ONLY ALLOWED A PARTIAL BATH. NO BEHAVIORS REQUIRING PRN MEDICATIONS. GETTING UP TO BSC WITH ASSISTANCE. SPOUSE VISITED THIS AFTERNOON.
[2022-02-08 05:20] LABS: Albumin, Blood 2.8 g/dL (3.4-5.0); Anion Gap 9 mmol/L (6-16); Blood Urea Nitrogen 63 mg/dL (8-24); Bun/Creatinine Ratio 47.7 (12.0-20.0); CO2, Blood 29 mmol/L (21-32); Calcium, Blood 8.6 mg/dL (8.5-10.1); Chloride, Blood 91 mmol/L (98-108); Creatinine, Blood 1.32 mg/dL (0.40-1.00); Glomerular Filtration Rate 40 (60-); Glucose, Blood 93 mg/dL (70-99); Phosphorus, Blood 3.2 mg/dL (2.5-4.9); Potassium, Blood 3.8 mmol/L (3.5-5.5); Sodium, Blood 129 mmol/L (136-145)
--- NOTE | 2022-02-08 05:30 | NUR ---
SHIFT SUMMARY A/O X3. SBA TO BSC- INCONTINENT ONCE STANDING, VOIDING WELL. PAIN MANAGED W/ PO PAIN MEDICATION. PLEASANT AND COOPERATIVE W/ CARE THROUGHOUT SHIFT, CONFUSED AT TIMES. VITAL SIGNS STABLE. PLAN TO DC HOME TOMORROW ON HOSPICE. WILL CONTINUE TO MONITOR AND REPORT TO ONCOMING RN.
--- NOTE | 2022-02-08 17:21 | NUR ---
INFORMED BY CM TO CALL [facility] AT [phone]. PATIENT TO BE PICKED UP 02/09 AT 10AM
[2022-02-08 17:50] LABS: Influenza A, PCR NEGATIVE (NEGATIVE); Influenza B, PCR NEGATIVE (NEGATIVE); Resp Syncytial Virus, PCR NEGATIVE (NEGATIVE)
[2022-02-08 17:53] LABS: SARS-Cov-2 (COVID-19) PCR, MMC POSITIVE (NEGATIVE)
--- NOTE | 2022-02-08 18:09 | NUR ---
SHIFT SUMMARY PATIENT A&0X2-3. EASILY AGITATED. [place]. 1PA TO BSC OR CHAIR. ON FLUID RESTRICTION 1500ML. C/O PAIN, MEDICATED PER OCT X1. PLAN TO DISCHARGE HOME TOMORROW ON HOSPICE. PATIENT TESTED POSITIVE FOR COVID. REPORTS SHE HAS HAD A COUGH FOR ABOUT 4 DAYS. NO OTHER SYMPTOMS. WILL CONTINUE TO MONITOR.
--- NOTE | 2022-02-08 21:27 | NUR ---
PT IS INCREASINGLY IRRITATED THIS EVENING. SHE HAS PERIODS WHERE SHE WANTS TO BE LEFT ALONE, BUT THEN CALLS ANGRY NO ONE HAS COME IN. PT WAS AGREEABLE TO TAKE SEROQUEL, BUT SO FAR HAS NOT FELT ANY EFFECT.
--- NOTE | 2022-02-09 05:16 | NUR ---
SHIFT SUMMARY PT HAS BEEN VERY IRRITABLE THIS SHIFT. SHE IS INCREAASINGLY CONFUSED. SHE CALLS AND THEN ASKS WHY SHE IS BEING DISTURBED. REFUSES TURNS AND ASSISTANCE TO THE COMMODE, BUT CALLS STAFF IN TO HELP. SHE WAS AGREEABLE TO [facility] AND IT TOOK SOME TIME BEFORE PT WAS ABLE TO SLEEP. SHE HAD REQUESTED PAIN MEDICATION ONCE. SHE DENIES COUGH, SOB, CHEST PAIN, OR ANY COVID SYMPTOMS. [facility] BED IN LOWEST POSITION AND CALL LIGHT IN REACH
[2022-02-09] MEDS ORDERED: METO50 PO (09:50)
--- NOTE | 2022-02-09 10:24 | NUR ---
DISCHARGE SUMMARY PATIENT DISCHARGED HOME WITH HOSPICE. DISCHARGE PAPERWORK REVIEWED WITH PATIENT. NEW PRESCRIPTION FAXED TO PHARMACY. HAD CONFIRMED YESTERDAY THAT ALL EQUIPMENT HAD BEEN DELIVERED. PATIENT AND ALL BELONGINGS TAKEN WITH PATIENT VIA [facility] [facility]SP[facility] HOME.
== END 2022-02-09 10:05 | disposition hospice, home (50) | DRG 291 ==
LOC: ER 17:39 → MEDS 21:08
PROVIDERS: Emergency Medicine; Family Medicine; Hospitalist; Internal Medicine; ADMIT Internal Medicine
DX: I11.0 Hypertensive heart disease with heart failure (principal); I50.23 Acute on chronic systolic (congestive) heart failure; U07.1 COVID-19; E87.1 Hypo-osmolality and hyponatremia; N39.0 Urinary tract infection, site not specified; E87.2 Acidosis; R64 Cachexia; Z66 Do not resuscitate; K75.9 Inflammatory liver disease, unspecified; Z51.5 Encounter for palliative care; F03.90 Unspecified dementia, unspecified severity, without behavioral disturbance, psychotic disturbance, mood disturbance, and anxiety; F32.A Depression, unspecified; R45.1 Restlessness and agitation; I48.0 Paroxysmal atrial fibrillation; D50.9 Iron deficiency anemia, unspecified; M54.50 Low back pain, unspecified; G89.29 Other chronic pain; R16.0 Hepatomegaly, not elsewhere classified; K76.0 Fatty (change of) liver, not elsewhere classified; E78.5 Hyperlipidemia, unspecified; E03.9 Hypothyroidism, unspecified; D69.6 Thrombocytopenia, unspecified; M54.2 Cervicalgia; Z90.49 Acquired absence of other specified parts of digestive tract; Z90.710 Acquired absence of both cervix and uterus; Z79.899 Other long term (current) drug therapy; Z88.2 Allergy status to sulfonamides; Z98.890 Other specified postprocedural states; Z79.01 Long term (current) use of anticoagulants; Z88.5 Allergy status to narcotic agent; Z88.8 Allergy status to other drugs, medicaments and biological substances; Z79.02 Long term (current) use of antithrombotics/antiplatelets; Z79.891 Long term (current) use of opiate analgesic; Z98.1 Arthrodesis status; Z91.19 Patient's noncompliance with other medical treatment and regimen; Z68.23 Body mass index [BMI] 23.0-23.9, adult; L89.321 Pressure ulcer of left buttock, stage 1; L89.311 Pressure ulcer of right buttock, stage 1
CPT/HCPCS: 0241U; 36415; 51702; 51798; 71045; 76705; 80053; 80069; 81001; 82607; 82728; 82746; 83540; 83550; 83735; 83880; 84100; 85025; 87086; 93005; 93010; 93306; 96374-59; 96375-59; 96376; 97116; 97129; 97162; 97165; 97530; 97535; 99285-25; A9270; G0378; J0696; J1940; J2916; J3010; J3475; J7060